=== PATIENT | male | born 1960 | race Two or more races ===

== ENCOUNTER 2024-02-26 17:02 | Inpatient (IN) | payer MEDICARE, MEDICAID, SELFPAY ==
[2024-02-26 17:37] VITALS: BP 121/76; PULSE 100; RESP 16; TEMP 37.4; O2SAT 95; BMI 22.1
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
--- NOTE | 2024-02-26 17:41 | XR_ITS ---
Examination: Foot bilateral, 6 views Technique: AP, oblique, lateral views each foot total 6 views Date and time of exam: February 26, 2024 1827 hrs. Indications: Nonhealing wounds both feet Findings: The films are severely limited secondary to the support material There is a subluxation at the proximal interphalangeal joints left second digit No gross cortical bone destruction Impression: Limited study No gross cortical bone destruction MRI bilateral feet would best assess for osteomyelitis
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
[2024-02-26 18:23] LABS: Lactate (Lactic Acid) 3.3 mMol/L (0.4-2.0)
[2024-02-26 18:30] LABS: Basophils # (Auto) 0.1 Thou/mm3 (0.0-0.2); Basophils % (Auto) 1 % (0-2.5); Eosinophils # (Auto) 0.1 Thou/mm3 (0.0-0.5); Eosinophils % (Auto) 1 % (0-10); Hematocrit 38.3 % (41.0-53.0); Immature Granulocytes % (Auto) 1 % (0-0); Immature Granulocytes Auto 0.05 Thou/mm3 (0.00-0.00); Lymphocytes # (Auto) 2.6 Thou/mm3 (1.0-4.8); Lymphocytes % (Auto) 26 % (10-50); Mean Corpuscular HGB Conc 33.9 g/dl (31.0-37.0); Mean Corpuscular Hemoglobin 28.1 pg (25.0-35.0); Mean Corpuscular Volume 83 fL (80-100); Monocytes # (Auto) 1.2 Thou/mm3 (0.0-0.8); Monocytes % (Auto) 11 % (0-12); Neutrophils # (Auto) 6.1 Thou/mm3 (1.8-7.7); Neutrophils % (Auto) 61 % (37-80); Nucleated Red Blood Cell % 0 /100 WBC (0); Platelet Count 217 Thou/mm3 (140-440); RDW Standard Deviation 52.4 fL (35.1-43.9); Red Blood Count 4.63 Miln/mm3 (4.50-5.90); White Blood Count 10.1 Thou/mm3 (3.8-10.6)
[2024-02-26 18:40] LABS: Glucose Estimated Average 111 mg/dL (80-131); Hemoglobin A1C 5.5 % Hgb (4.8-6.0)
[2024-02-26 18:50] LABS: Alanine Aminotransferase 22 U/L (10-49); Albumin, Serum 2.7 gm/dL (3.4-4.8); Albumin/Globulin Ratio 0.4 (1.2-2.2); Alkaline Phosphatase 175 U/L (46-116); Anion Gap 8 (7-16); Aspartate Amino Transferase 52 U/L (0-34); BUN/Creatinine Ratio 10 Ratio (12-20); Bilirubin,Total 1.2 mg/dL (0.3-1.2); Blood Urea Nitrogen 8 mg/dL (9-23); C-Reactive Protein 3.7 mg/dL (0.0-0.9); Calcium 8.2 mg/dL (8.3-10.6); Calcium (Corrected) 9.2 mg/dL (8.5-10.1); Carbon Dioxide 24.5 mMol/L (20.0-31.0); Chloride 94 mMol/L (98-107); Creatinine (Component) 0.8 mg/dL (0.6-1.3); Estimated Creatinine Clearance 93.3 mL/min (>60); Glucose 152 mg/dL (74-106); Osmolality,Calculated 254 (275-295); Potassium 3.4 mMol/L (3.4-5.1); Procalcitonin 0.17 ng/ml (0.0-0.49); Sodium 126 mMol/L (136-145); Total Protein 9.7 gm/dL (5.7-8.2); eGFR > 60 See Note
[2024-02-26 18:56] LABS: INR 1.4 (0.9-1.3); Partial Thromboplastin Time 40.2 Seconds (22.0-36.0); Prothrombin Time 14.7 Seconds (9.0-12.2)
[2024-02-26 19:10] LABS: Sed Rate (ESR) 130 mm/hr (0-20)
[2024-02-26 19:31] LABS: Amphetamine/Methamp Scrn,U Positive (Negative); Barbiturate Screen,Urine Negative (Negative); Benzodiazepines Screen,Urine Negative (Negative); Benzoylecgonine Screen, Ur Negative (Negative); Fentanyl Screen,Urine Positive (Negative); Opiate Screen,Urine Positive (Negative); THC Screen,Urine Negative (Negative)
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
[2024-02-26 21:19] LABS: Reflex Lactate? Y
[2024-02-26 22:11] VITALS: BP 136/95; PULSE 102; RESP 16; TEMP 36.6; O2SAT 92
--- NOTE | 2024-02-26 22:15 | PC.NURSE ---
Pt to room 5 at this time from room 15; assumed care. Pt's leg dressings removed for MD perez.
--- NOTE | 2024-02-26 22:37 | PC.NURSE ---
Pt has abscesses all over bilateral arms that pt admits are from injecting heroin. Pt states he is on methadone but reports he hasn't had any in the past [address] Jordan informed.
--- NOTE | 2024-02-26 22:44 | PC.NURSE ---
Dr. Jordan at the bedside.
[2024-02-26] MEDS: PIPER/TAZO INJ 3.375 GM in SODIUM CHLORIDE 0.9% (P) 50 ML IV (22:59)
[2024-02-26] MEDS: SODIUM CHLORIDE 0.9% 1000 ML 1,000 ML 999 ML IV (22:59)
[2024-02-26 23:00] VITALS: BP 101/75; PULSE 107; RESP 16; O2SAT 95
[2024-02-26] MEDS: KETOROLAC INJ 30 MG/ML VIAL IVP (23:05)
[2024-02-26] MEDS: LORazepam 2 MG/ML VIAL IVP (23:06)
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
[2024-02-26] MEDS: Vancomycin Inj 2,000 MG in SODIUM CHLORIDE 0.9% 500 ML 500 ML 150 MG IV (23:47)
[2024-02-27] VITALS (7 sets, daily range): BP systolic 103–128; BP diastolic 63–85; PULSE 94–116; RESP 19–22; TEMP 36.4–36.7; O2SAT 95–99; BMI 25.6; BMI 25.7
--- NOTE | 2024-02-27 00:07 | XR_ITS ---
Examination: Urinary bladder sonography TECHNIQUE: Grayscale sonographic images urinary bladder Exam date and time: February 27, 2024 1319 hours INDICATIONS: Thickened urinary bladder wall on CT pelvis April 27, 2023 FINDINGS: Bladder prevoid volume 596 cc Prostate 3.4 x 3.4 x 3.4 cm volume 20.5 cc no prostate nodules Normal urinary bladder wall IMPRESSION: Normal urinary bladder wall
[2024-02-27] MEDS: SODIUM CHLORIDE 0.9% 1000 ML 1,000 ML 999 ML IV (00:10)
--- NOTE | 2024-02-27 00:11 | PC.NURSE ---
Admitting residents at the bedside.
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
--- NOTE | 2024-02-27 04:27 | XR_ITS ---
Examination: MRI left lower leg, without contrast Date and time of exam: February 27, 2024 at 1840 hrs. Indications: Left lower leg redness swelling and pain nonhealing wound medial side of the distal tibia, one month Technique: Multiple axial sagittal and coronal images of the left lower leg have been obtained with the Siemens high-resolution 1.5 Karol MRI scanner. Images obtained include T2-weighted fat-suppressed sagittal sections, TR 3500, TE 46, T2 weighted coronal fat suppressed images, TR 3050, TE 84, T2-weighted transverse fat suppressed images, TR 3260, TE 63, proton density transverse images, TR 4720 TE 46, and T1 weighted coronal images, TR 560, TE 13. Findings: Magnetic susceptibility artifacts upper tibia secondary to orthopedic hardware Cortex of the tibia and fibula are intact No endosteal scalloping No fluid-filled abscess Achilles tendon flexor tendons intact as well as extensor tendons Impression: Negative for osteomyelitis Negative for soft tissue abscess
[2024-02-27 06:20] LABS: Basophils # (Auto) 0.1 Thou/mm3 (0.0-0.2); Basophils % (Auto) 1 % (0-2.5); Eosinophils # (Auto) 0.2 Thou/mm3 (0.0-0.5); Eosinophils % (Auto) 2 % (0-10); Hematocrit 33.5 % (41.0-53.0); Hemoglobin 11.5 g/dL (13.5-16.0); Immature Granulocytes % (Auto) 0 % (0-0); Immature Granulocytes Auto 0.03 Thou/mm3 (0.00-0.00); Lymphocytes # (Auto) 2.7 Thou/mm3 (1.0-4.8); Lymphocytes % (Auto) 31 % (10-50); Mean Corpuscular HGB Conc 34.3 g/dl (31.0-37.0); Mean Corpuscular Hemoglobin 28.3 pg (25.0-35.0); Mean Corpuscular Volume 82 fL (80-100); Monocytes # (Auto) 1.1 Thou/mm3 (0.0-0.8); Monocytes % (Auto) 12 % (0-12); Neutrophils # (Auto) 4.7 Thou/mm3 (1.8-7.7); Neutrophils % (Auto) 54 % (37-80); Nucleated Red Blood Cell % 0 /100 WBC (0); Platelet Count 177 Thou/mm3 (140-440); Red Blood Count 4.07 Miln/mm3 (4.50-5.90); White Blood Count 8.7 Thou/mm3 (3.8-10.6)
[2024-02-27 06:29] LABS: Alanine Aminotransferase 16 U/L (10-49); Albumin, Serum 2.1 gm/dL (3.4-4.8); Albumin/Globulin Ratio 0.4 (1.2-2.2); Alkaline Phosphatase 138 U/L (46-116); Anion Gap 6 (7-16); Aspartate Amino Transferase 38 U/L (0-34); BUN/Creatinine Ratio 15 Ratio (12-20); Bilirubin,Total 1.1 mg/dL (0.3-1.2); Blood Urea Nitrogen 6 mg/dL (9-23); Calcium 7.6 mg/dL (8.3-10.6); Calcium (Corrected) 9.1 mg/dL (8.5-10.1); Carbon Dioxide 25.5 mMol/L (20.0-31.0); Chloride 104 mMol/L (98-107); Creatinine (Component) 0.4 mg/dL (0.6-1.3); Estimated Creatinine Clearance 193.9 mL/min (>60); Globulin 5.4 gm/dL (2.3-3.5); Glucose 106 mg/dL (74-106); Magnesium 1.7 mg/dL (1.6-2.6); Osmolality,Calculated 267 (275-295); Sodium 135 mMol/L (136-145); Thyroid Stimulating Hormone 2.37 uIU/mL (0.55-4.78); Total Protein 7.5 gm/dL (5.7-8.2); eGFR > 60 See Note
[2024-02-27] MEDS: RINGERS LACTATED 1000 ML 1,000 ML 75 ML IV (06:29)
[2024-02-27] MEDS: NICOTINE PATCH 14 MG/24 HR PATCH.TD24 TOP (06:29)
[2024-02-27] MEDS: PIPER/TAZO 3.375 GM 3.375 GM/50 ML BAG IV ×3 (06:30→20:09)
--- NOTE | 2024-02-27 08:23 | ECHO_ITS ---
Transthoracic Echo Report Ht (in): 69 Wt (lb): 173 Exam Location: Portable Status: Inpatient [employer] Machine Operator: Kalli Sue Indications: Procedure Performed: BP: 105 / 74 HR: 98 Rhythm: Sinus Technical Quality: Technically difficult study MEASUREMENTS (Male / Female) Normal Values 2D ECHO LV Diastolic Diameter PLAX 4.7 cm 4.2 - 5.9 / 3.9 - 5.3 cm LV Systolic Diameter PLAX 3.2 cm IVS Diastolic Thickness 0.8 cm 0.6 - 1.0 / 0.6 - 0.9 cm LVPW Diastolic Thickness 1.2 cm 0.6 - 1.0 / 0.6 - 0.9 cm LV Relative Wall Thickness 0.4 LVOT Diameter 1.9 cm LA Volume Index 27.9 cm?/m? 16 - 28 cm?/m? Ascending Aorta Diameter 3.0 cm M-MODE Aortic Root Diameter MM 3.2 cm LA Systolic Diameter MM 3.9 cm LA Ao Ratio MM 1.2 AV Cusp Separation MM 2.3 cm DOPPLER AV Peak Velocity 147.0 cm/s AV Peak Gradient 8.6 mmHg AV Mean Gradient 4.0 mmHg AV Velocity Time Integral 27.3 cm LVOT Peak Velocity 141.0 cm/s LVOT Peak Gradient 8.0 mmHg LVOT Velocity Time Integral 30.8 cm LVOT Cardiac Index 4355.4 cm?/min?m? AV Area Cont Eq vti 3.2 cm? AV Area Cont Eq pk 2.7 cm? MV Peak Velocity 129.0 cm/s MV Peak Gradient 6.7 mmHg MV Mean Velocity 80.7 cm/s MV Mean Gradient 3.0 mmHg MV Area PHT 6.3 cm? Mitral E Point Velocity 78.6 cm/s Mitral A Point Velocity 123.0 cm/s Mitral E to A Ratio 0.6 LV E' Lateral Velocity 9.6 cm/s Mitral E to LV E' Lateral Ratio 8.2 LV E' Septal Velocity 8.4 cm/s Mitral E to LV E' Septal Ratio 9.4 TR Peak Velocity 381.0 cm/s TR Peak Gradient 58.1 mmHg FINDINGS Left Ventricle Normal left ventricular size, wall thickness, systolic function with no obvious regional wall motion abnormalities. The ejection fraction is visually estimated at 60-65%. Right Ventricle The right ventricle is normal in size and systolic function. The estimated right ventricular systoli c pressure, 66 mmHg. RAP 5. Left Atrium The left atrium is normal by two-dimensional, color flow and Doppler imaging with no structural abnormalities, no thrombus formation present. Right Atrium The right atrium is normal by two-dimensional imaging, color flow and Doppler imaging with no struct ural abnormalities, no thrombus formation present. Atrial Septum The interatrial septum appears normal with no evidence of a shunt. Aorta The aorta is normal by two-dimensional, color flow and Doppler interrogation. Mitral Valve The mitral valve is mildly MAC. There is trace mitral valve regurgitation. Aortic Valve The aortic valve is trileaflet and normal by two-dimensional, color flow and Doppler interrogation. There is no significant aortic valve regurgitation. Tricuspid Valve The tricuspid valve is normal by two-dimensional, color flow and Doppler interrogation. There is mil d tricuspid valve regurgitation. Pulmonic Valve There is no significant pulmonic valve regurgitation. Vessels The pulmonary artery appears normal. The inferior vena cava pulmonary and hepatic veins appear matthieu l. Pericardium The pericardium is normal by two-dimensional imaging. There is no significant pericardial effusion. CONCLUSIONS Indication: IVDA Normal LV size and function. Stage I diastolic dysfunction. Estimated EF 60-65% Normal RV size and function. Estimated RVSP 66mmHg. Mild MAC. Trace MR. Mild TR. Miles Doyle (Electronically Signed) Final Date: 28 February 2024 13:23
--- NOTE | 2024-02-27 08:27 | PC.NURSE ---
PATIENT [place] BEEN SLEEPING. NO DISTRESS OBSERVED. AT BEDSIDE.
[2024-02-27] MEDS: VANCOMYCIN/WATER 1250 MG IVPB 250 ML 120 MG IV ×3 (09:01→23:10)
[2024-02-27] MEDS: POTASSIUM CHL 10 mEq IVPB 10 MEQ/100 ML BAG 100 MEQ IV ×4 (09:21→12:23)
[2024-02-27] MEDS: PANTOPRAZOLE 40 MG TABLET PO (09:22)
--- NOTE | 2024-02-27 09:22 | PC.SS ---
Follow up note: Pending ortho consult. On IV antibiotic.
[2024-02-27] MEDS: POTASSIUM CHLORIDE 20 mEq TABCR 40 MEQ PO (09:24)
--- NOTE | 2024-02-27 10:30 | XR_ITS ---
Examination: Arterial duplex lower extremity study. Date and time of exam: February 27, 2024 1235 hours INDICATIONS: Bilateral leg pain beginning 10 days ago Findings: Duplex sonographic imaging of the lower extremity arteries using B-mode/Hurtado scale imaging and Doppler spectral analysis and color flow. Ankle brachial indices have been recorded. Right common femoral artery demonstrates biphasic flow. Right superficial femoral artery demonstrates biphasic flow. Right popliteal artery demonstrates biphasic flow. Right posterior tibial artery demonstrated monophasic flow. Right ankle/brachial index is 1.5. Left common femoral artery demonstrates biphasic flow. Left superficial femoral artery demonstrates biphasic flow. Left popliteal artery demonstrates biphasic flow. Left posterior tibial artery demonstrated monophasic flow. Left ankle/brachial index is 0.84. Impression: Positive for obstructive arterial disease left lower extremity Consider correlation with CTA abdominal aorta iliofemoral runoff post intravenous contrast
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
[2024-02-27 13:22] LABS: Collection Type, Urine Clean Catch
[2024-02-27 13:55] LABS: Bilirubin,Urine Negative (Negative); Blood,Urine Negative (Negative); Clarity,Urine Clear (Clear/Hazy); Color,Urine Yellow (Lt Yel-Yel); Glucose, Urine Negative (Negative); Ketones,Urine Negative (Negative); Leukocyte Esterase,Urine Negative (Negative); Nitrite,Urine Negative (Negative); Protein,Urine Negative (Neg - Trace); RBC,Urine 1 /hpf (0-3); Specific Gravity,Urine 1.014 (1.001-1.035); Squamous Epithelial Cell,Urine < 1 /hpf (0-5); WBC,Urine 5 /hpf (0-5)
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
[2024-02-27 14:41] LABS: HIV (1&2) Antibody Rapid Non-Reactive
--- NOTE | 2024-02-27 15:06 | XR_ITS ---
Examination: Venous duplex lower extremity sonogram, bilateral. Date and time of exam: February 27, 2024 1611 hours INDICATIONS: Bilateral leg pain onset beginning 10 days ago Technique: Multiple sonographic images of the deep venous system have been obtained. B-mode/2-D grayscale imaging of vascular structures and Doppler spectral analysis (waveforms) and color performed Both legs are examined. Findings: Deep venous systems do not demonstrate abnormal echogenicity. All visualized deep veins exhibit compressibility. All visualized deep veins exhibit augmentation. Impression: Negative for deep vein thrombosis
[2024-02-27 15:14] LABS: Hepatitis A Antibody IgM Non Reactive (Non React); Hepatitis B Core Antibody IgM Non Reactive (Non React); Hepatitis B Surface Antigen Non Reactive (Non React); Hepatitis C Antibody Reactive (Non React)
--- NOTE | 2024-02-27 16:09 | PC.DIETICIAN ---
RD to add Flavored Angel Luis 1 pkt BID daily after lunch and dinner, mix with 6-8 oz water for targeted nutrition and wound healing, RN to administer as medication *Recommendation : add Vitamin C 500mg BID daily, zinc 220mg , Multivitamin-Mineral daily to ensure adequate nutrient intake and promote wound healing.
--- NOTE | 2024-02-27 18:11 | XR_ITS ---
Examination: MRI left foot, without contrast Date and time of exam: March 03, 2024 1806 hrs. Indications: Left foot redness swelling and pain dorsal surface of the metatarsals [] Technique: Multiple axial sagittal and coronal images of the left foot have been obtained with the Siemens high-resolution 1.5 Karol MRI scanner. Images obtained include T2-weighted fat-suppressed sagittal sections, TR 3500, TE 46, T2 weighted coronal fat suppressed images, TR 3050, TE 84, T2-weighted transverse fat suppressed images, TR 3260, TE 63, proton density transverse images, TR 4720 TE 46, and T1 weighted coronal images, TR 560, TE 13. Findings: Marked cortical bone destruction involving the proximal and middle phalanges second digit with surrounding soft tissue infection Milder cortical bone destruction involving the ungual tuft tip distal phalanx first digit No drainable soft tissue abscess Magnetic susceptibility artifact in the soft tissue plantar to the calcaneus Diffuse edema surrounds the foot Impression: Osteomyelitis proximal and middle phalanges second digit Osteomyelitis ungual tuft tip first digit
--- NOTE | 2024-02-27 19:36 | PC.NURSE ---
Patient was out for MRI didnt adminster 1800 medication zosyn, notified christina Gonzalez to administer when patient returns
[2024-02-27] MEDS: METHADONE HCL 10 MG TABLET 40 MG PO (20:36)
[2024-02-27 23:03] LABS: Vancomycin,Trough 19.7 mcg/mL (5.0-10.0)
[2024-02-27] MEDS: HEPARIN SOD INJ 5000 UNIT/ML VIAL SC (23:11)
[2024-02-28] VITALS (8 sets, daily range): BP systolic 92–125; BP diastolic 62–85; PULSE 90–103; RESP 17–22; TEMP 36.2–36.9; O2SAT 94–98
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
--- NOTE | 2024-02-28 | XR_ITS ---
Examination: MRI right foot, without contrast Date and time of exam: February 28, 2024 1809 hrs. Indications: Onset plantar surface swelling and pain especially right fifth digit beginning one month ago Technique: Multiple axial sagittal and coronal images of the right foot have been obtained with the Siemens high-resolution 1.5 Karol MRI scanner. Images obtained include T2-weighted fat-suppressed sagittal sections, TR 3500, TE 46, T2 weighted coronal fat suppressed images, TR 3050, TE 84, T2-weighted transverse fat suppressed images, TR 3260, TE 63, proton density transverse images, TR 4720 TE 46, and T1 weighted coronal images, TR 560, TE 13. Findings: Magnetic susceptibility artifact which is plantar to the fifth metatarsophalangeal joint suspicious for foreign body Soft tissue swelling about the distal phalanx fifth digit with cortical bone erosion No soft tissue abscess No pathologic fracture Diffuse edema in the subcutaneous fatty tissue Significant thickening in the plantar fascia Impression: Osteomyelitis distal phalanx fifth digit Foreign body in the soft tissue plantar to the right fifth metatarsophalangeal joint,, recommend CT scan foot without contrast follow-up
[2024-02-28] MEDS: PIPER/TAZO 3.375 GM 3.375 GM/50 ML BAG IV ×5 (00:08→23:48)
[2024-02-28] MEDS: VANCOMYCIN/WATER 1250 MG IVPB 250 ML 120 MG IV (05:52)
[2024-02-28] MEDS: HEPARIN SOD INJ 5000 UNIT/ML VIAL SC ×3 (05:52→21:46)
[2024-02-28 06:17] LABS: Basophils # (Auto) 0.1 Thou/mm3 (0.0-0.2); Basophils % (Auto) 2 % (0-2.5); Eosinophils # (Auto) 0.2 Thou/mm3 (0.0-0.5); Eosinophils % (Auto) 2 % (0-10); Hematocrit 35.1 % (41.0-53.0); Hemoglobin 12.1 g/dL (13.5-16.0); Immature Granulocytes % (Auto) 1 % (0-0); Immature Granulocytes Auto 0.06 Thou/mm3 (0.00-0.00); Lymphocytes # (Auto) 2.8 Thou/mm3 (1.0-4.8); Lymphocytes % (Auto) 32 % (10-50); Mean Corpuscular HGB Conc 34.5 g/dl (31.0-37.0); Mean Corpuscular Hemoglobin 28.2 pg (25.0-35.0); Mean Corpuscular Volume 82 fL (80-100); Monocytes % (Auto) 11 % (0-12); Neutrophils # (Auto) 4.6 Thou/mm3 (1.8-7.7); Neutrophils % (Auto) 53 % (37-80); Nucleated Red Blood Cell % 0 /100 WBC (0); Platelet Count 210 Thou/mm3 (140-440); RDW Standard Deviation 51.5 fL (35.1-43.9); Red Blood Count 4.29 Miln/mm3 (4.50-5.90); White Blood Count 8.8 Thou/mm3 (3.8-10.6)
[2024-02-28 06:39] LABS: Alanine Aminotransferase 15 U/L (10-49); Albumin, Serum 2.2 gm/dL (3.4-4.8); Albumin/Globulin Ratio 0.4 (1.2-2.2); Alkaline Phosphatase 135 U/L (46-116); Anion Gap 6 (7-16); Aspartate Amino Transferase 35 U/L (0-34); BUN/Creatinine Ratio 10 Ratio (12-20); Bilirubin,Total 1.1 mg/dL (0.3-1.2); Blood Urea Nitrogen < 5 mg/dL (9-23); Calcium 7.9 mg/dL (8.3-10.6); Calcium (Corrected) 9.3 mg/dL (8.5-10.1); Carbon Dioxide 24.1 mMol/L (20.0-31.0); Chloride 102 mMol/L (98-107); Creatinine (Component) 0.5 mg/dL (0.6-1.3); Estimated Creatinine Clearance 150.1 mL/min (>60); Globulin 5.5 gm/dL (2.3-3.5); Glucose 86 mg/dL (74-106); Osmolality,Calculated 260 (275-295); Potassium 3.9 mMol/L (3.4-5.1); Sodium 132 mMol/L (136-145); Total Protein 7.7 gm/dL (5.7-8.2); eGFR > 60 See Note
[2024-02-28] MEDS: PANTOPRAZOLE 40 MG TABLET PO (08:26)
[2024-02-28] MEDS: METHADONE HCL 10 MG TABLET 40 MG PO (08:26)
[2024-02-28] MEDS: traMADol HCL 50 MG TABLET PO (12:09)
--- NOTE | 2024-02-28 12:15 | PC.WOUND ---
Assisted Dr. Ortega with bedside I&D after consent obtained and pre-medicated. Pt tolerated procedure well, no active bleeding. Adaptic dressing reapplied. orders to follow at [facility] as outpatient. Arias continue to follow.
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
--- NOTE | 2024-02-28 13:10 | PD.SURPROC ---
Procedures - Surgery Procedure Comment Procedure Comment: Excisional debridement of left foot wound Informed consent obtained Pt received tramadol 50mg immediately prior to procedure Timeout performed Ulceration of the left foot proximal to the second and third toes sharply debrided with a curette to the level of subcutaneous tissue Wound irrigated with betadine and saline Minimal bleeding controlled with direct pressure Wound dressed with adaptic, fluffs and kerlix
[2024-02-28] MEDS: VANCOMYCIN/NS 1 GM IVPB 200 ML IV ×2 (15:12→21:46)
--- NOTE | 2024-02-28 20:12 | PC.NURSE ---
CT staff called for CT scan went to pts room and explained to him but he refused it, per pt he is tired and just want to go sleep, MD Rivera made aware and he said to tell pt that its just for 10 mins went back to pts room and explained it to him but he insisted not to go JUSTIN cristina at bedside at that time. MD Talamantes made aware she said its okay to do it tomorrow.
[2024-02-29] VITALS (9 sets, daily range): BP systolic 97–139; BP diastolic 58–92; PULSE 78–95; RESP 16–17; TEMP 36.4–37.3; O2SAT 93–95
[2024-02-29] MEDS: HEPARIN SOD INJ 5000 UNIT/ML VIAL SC ×3 (05:05→22:05)
[2024-02-29] MEDS: PIPER/TAZO 3.375 GM 3.375 GM/50 ML BAG IV ×3 (05:05→18:48)
[2024-02-29] MEDS: VANCOMYCIN/NS 1 GM IVPB 200 ML IV ×2 (05:40→14:07)
[2024-02-29 06:04] LABS: Basophils # (Auto) 0.1 Thou/mm3 (0.0-0.2); Basophils % (Auto) 1 % (0-2.5); Eosinophils # (Auto) 0.1 Thou/mm3 (0.0-0.5); Eosinophils % (Auto) 2 % (0-10); Hemoglobin 12.1 g/dL (13.5-16.0); Immature Granulocytes % (Auto) 1 % (0-0); Immature Granulocytes Auto 0.04 Thou/mm3 (0.00-0.00); Lymphocytes # (Auto) 2.7 Thou/mm3 (1.0-4.8); Lymphocytes % (Auto) 32 % (10-50); Mean Corpuscular HGB Conc 34.6 g/dl (31.0-37.0); Mean Corpuscular Hemoglobin 28.4 pg (25.0-35.0); Mean Corpuscular Volume 82 fL (80-100); Monocytes # (Auto) 0.7 Thou/mm3 (0.0-0.8); Monocytes % (Auto) 9 % (0-12); Neutrophils # (Auto) 4.6 Thou/mm3 (1.8-7.7); Neutrophils % (Auto) 56 % (37-80); Nucleated Red Blood Cell % 0 /100 WBC (0); Platelet Count 180 Thou/mm3 (140-440); RDW Standard Deviation 51.2 fL (35.1-43.9); Red Blood Count 4.26 Miln/mm3 (4.50-5.90); White Blood Count 8.2 Thou/mm3 (3.8-10.6)
[2024-02-29 06:55] LABS: Alanine Aminotransferase 15 U/L (10-49); Albumin, Serum 2.3 gm/dL (3.4-4.8); Albumin/Globulin Ratio 0.4 (1.2-2.2); Alkaline Phosphatase 137 U/L (46-116); Anion Gap 8 (7-16); Aspartate Amino Transferase 34 U/L (0-34); BUN/Creatinine Ratio 10 Ratio (12-20); Bilirubin,Total 0.9 mg/dL (0.3-1.2); Blood Urea Nitrogen 5 mg/dL (9-23); Calcium 7.5 mg/dL (8.3-10.6); Calcium (Corrected) 8.9 mg/dL (8.5-10.1); Carbon Dioxide 23.4 mMol/L (20.0-31.0); Chloride 100 mMol/L (98-107); Creatinine (Component) 0.5 mg/dL (0.6-1.3); Estimated Creatinine Clearance 150.1 mL/min (>60); Globulin 5.5 gm/dL (2.3-3.5); Glucose 97 mg/dL (74-106); Osmolality,Calculated 259 (275-295); Potassium 3.5 mMol/L (3.4-5.1); Sodium 131 mMol/L (136-145); Total Protein 7.8 gm/dL (5.7-8.2); eGFR > 60 See Note
[2024-02-29] MEDS: METHADONE HCL 10 MG TABLET 40 MG PO (08:52)
[2024-02-29] MEDS: PANTOPRAZOLE 40 MG TABLET PO (08:52)
--- NOTE | 2024-02-29 09:14 | PC.SS ---
Follow up note: Pt is on IV antibiotic. Pending Dr. Thomas's recommendations.
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
[2024-02-29] MEDS: traMADol HCL 50 MG TABLET PO (12:03)
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
[2024-02-29 21:45] LABS: Vancomycin,Trough 21.7 mcg/mL (5.0-10.0)
[2024-03-01] VITALS (9 sets, daily range): BP systolic 95–114; BP diastolic 64–78; PULSE 80–91; RESP 14–18; TEMP 36.2–37.1; O2SAT 92–99
[2024-03-01] MEDS: PIPER/TAZO 3.375 GM 3.375 GM/50 ML BAG IV ×5 (00:02→23:45)
[2024-03-01] MEDS: HEPARIN SOD INJ 5000 UNIT/ML VIAL SC ×3 (05:22→21:20)
[2024-03-01] MEDS: Milk Of Magnesia Susp 30 ML UDC PO (05:34)
[2024-03-01] MEDS: traMADol HCL 50 MG TABLET PO (05:35)
[2024-03-01 05:48] LABS: Basophils # (Auto) 0.1 Thou/mm3 (0.0-0.2); Basophils % (Auto) 1 % (0-2.5); Eosinophils # (Auto) 0.2 Thou/mm3 (0.0-0.5); Eosinophils % (Auto) 2 % (0-10); Hematocrit 37.3 % (41.0-53.0); Hemoglobin 12.6 g/dL (13.5-16.0); Immature Granulocytes % (Auto) 0 % (0-0); Immature Granulocytes Auto 0.03 Thou/mm3 (0.00-0.00); Lymphocytes # (Auto) 2.9 Thou/mm3 (1.0-4.8); Lymphocytes % (Auto) 36 % (10-50); Mean Corpuscular HGB Conc 33.8 g/dl (31.0-37.0); Mean Corpuscular Hemoglobin 27.9 pg (25.0-35.0); Mean Corpuscular Volume 83 fL (80-100); Monocytes # (Auto) 0.9 Thou/mm3 (0.0-0.8); Monocytes % (Auto) 11 % (0-12); Neutrophils # (Auto) 3.9 Thou/mm3 (1.8-7.7); Neutrophils % (Auto) 49 % (37-80); Nucleated Red Blood Cell % 0 /100 WBC (0); Platelet Count 171 Thou/mm3 (140-440); RDW Standard Deviation 51.7 fL (35.1-43.9); Red Blood Count 4.52 Miln/mm3 (4.50-5.90); White Blood Count 7.9 Thou/mm3 (3.8-10.6)
[2024-03-01 05:53] LABS: Misc Send Out* See Sep Rpt
[2024-03-01 06:31] LABS: Alanine Aminotransferase 16 U/L (10-49); Albumin, Serum 2.3 gm/dL (3.4-4.8); Albumin/Globulin Ratio 0.4 (1.2-2.2); Alkaline Phosphatase 143 U/L (46-116); Anion Gap 7 (7-16); Aspartate Amino Transferase 40 U/L (0-34); BUN/Creatinine Ratio 10 Ratio (12-20); Bilirubin,Total 0.9 mg/dL (0.3-1.2); Blood Urea Nitrogen < 5 mg/dL (9-23); Calcium (Corrected) 9.4 mg/dL (8.5-10.1); Chloride 101 mMol/L (98-107); Creatinine (Component) 0.5 mg/dL (0.6-1.3); Estimated Creatinine Clearance 150.1 mL/min (>60); Globulin 5.8 gm/dL (2.3-3.5); Glucose 93 mg/dL (74-106); Osmolality,Calculated 261 (275-295); Potassium 3.6 mMol/L (3.4-5.1); Sodium 132 mMol/L (136-145); Total Protein 8.1 gm/dL (5.7-8.2); eGFR > 60 See Note
[2024-03-01] MEDS: PANTOPRAZOLE 40 MG TABLET PO (09:47)
[2024-03-01] MEDS: METHADONE HCL 10 MG TABLET 40 MG PO (09:47)
[2024-03-01] MEDS: DOCUSATE SOD 100 MG CAPSULE PO (10:32)
[2024-03-01] MEDS: SENNA TABLET 1 TAB PO (10:32)
[2024-03-01] MEDS: VANCOMYCIN/WATER 1250 MG IVPB 250 ML 120 MG IV ×2 (10:33→21:32)
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
[2024-03-01] MEDS: ASPIRIN EC 81 MG TABEC PO (15:24)
[2024-03-01] MEDS: BusPIRone HCL 5 MG TABLET PO (15:24)
[2024-03-01] MEDS: CLOPIDOGREL BISULFATE 75 MG TABLET PO (15:24)
[2024-03-01] MEDS: ATORVASTATIN CALCIUM 20 MG TABLET 80 MG PO (21:18)
[2024-03-02] VITALS (8 sets, daily range): BP systolic 90–105; BP diastolic 59–66; PULSE 69–87; RESP 15–24; TEMP 36.4–36.9; O2SAT 92–96
[2024-03-02] MEDS: PIPER/TAZO 3.375 GM 3.375 GM/50 ML BAG IV ×3 (05:10→17:44)
[2024-03-02] MEDS: HEPARIN SOD INJ 5000 UNIT/ML VIAL SC ×3 (05:15→21:29)
[2024-03-02 06:21] LABS: Basophils # (Auto) 0.1 Thou/mm3 (0.0-0.2); Basophils % (Auto) 2 % (0-2.5); Eosinophils # (Auto) 0.2 Thou/mm3 (0.0-0.5); Eosinophils % (Auto) 2 % (0-10); Hematocrit 35.1 % (41.0-53.0); Hemoglobin 11.7 g/dL (13.5-16.0); Immature Granulocytes % (Auto) 1 % (0-0); Immature Granulocytes Auto 0.04 Thou/mm3 (0.00-0.00); Lymphocytes # (Auto) 3.5 Thou/mm3 (1.0-4.8); Lymphocytes % (Auto) 40 % (10-50); Mean Corpuscular HGB Conc 33.3 g/dl (31.0-37.0); Mean Corpuscular Volume 84 fL (80-100); Monocytes # (Auto) 0.8 Thou/mm3 (0.0-0.8); Monocytes % (Auto) 9 % (0-12); Neutrophils % (Auto) 46 % (37-80); Nucleated Red Blood Cell % 0 /100 WBC (0); Platelet Count 184 Thou/mm3 (140-440); Red Blood Count 4.18 Miln/mm3 (4.50-5.90); White Blood Count 8.7 Thou/mm3 (3.8-10.6)
[2024-03-02 06:47] LABS: Alanine Aminotransferase 17 U/L (10-49); Albumin, Serum 2.3 gm/dL (3.4-4.8); Albumin/Globulin Ratio 0.4 (1.2-2.2); Alkaline Phosphatase 143 U/L (46-116); Anion Gap 5 (7-16); Aspartate Amino Transferase 42 U/L (0-34); BUN/Creatinine Ratio 12 Ratio (12-20); Bilirubin,Total 0.9 mg/dL (0.3-1.2); Blood Urea Nitrogen 7 mg/dL (9-23); Calcium (Corrected) 9.4 mg/dL (8.5-10.1); Carbon Dioxide 26.6 mMol/L (20.0-31.0); Chloride 101 mMol/L (98-107); Creatinine (Component) 0.6 mg/dL (0.6-1.3); Estimated Creatinine Clearance 125.1 mL/min (>60); Globulin 5.7 gm/dL (2.3-3.5); Glucose 89 mg/dL (74-106); Osmolality,Calculated 263 (275-295); Potassium 3.7 mMol/L (3.4-5.1); Sodium 133 mMol/L (136-145); eGFR > 60 See Note
[2024-03-02] MEDS: DOCUSATE SOD 100 MG CAPSULE PO (09:04)
[2024-03-02] MEDS: CLOPIDOGREL BISULFATE 75 MG TABLET PO (09:04)
[2024-03-02] MEDS: PANTOPRAZOLE 40 MG TABLET PO (09:04)
[2024-03-02] MEDS: METHADONE HCL 10 MG TABLET 40 MG PO (09:04)
[2024-03-02] MEDS: SENNA TABLET 1 TAB PO (09:04)
[2024-03-02] MEDS: BusPIRone HCL 5 MG TABLET PO ×2 (09:04→21:29)
[2024-03-02] MEDS: ASPIRIN EC 81 MG TABEC PO (09:04)
[2024-03-02 11:17] LABS: Vancomycin,Trough 13.9 mcg/mL (5.0-10.0)
[2024-03-02] MEDS: VANCOMYCIN/WATER 1250 MG IVPB 250 ML 120 MG IV ×2 (11:43→21:33)
--- NOTE | 2024-03-02 15:02 | PC.SS ---
Rounding: Dr. Thomas to see 03/03
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
[2024-03-02] MEDS: ATORVASTATIN CALCIUM 20 MG TABLET 80 MG PO (21:30)
[2024-03-03] VITALS: BP 97/62; PULSE 82; PULSE 84; RESP 20; TEMP 36.8; O2SAT 92
[2024-03-03] MEDS: PIPER/TAZO 3.375 GM 3.375 GM/50 ML BAG IV ×3 (00:25→14:21)
[2024-03-03 03:21] LABS: Hepatitis B Surface Ab NonReact(Not Immune) (Immune)
[2024-03-03 04:00] VITALS: BP 97/60; PULSE 75; PULSE 84; RESP 20; TEMP 36.6; O2SAT 94
[2024-03-03] MEDS: HEPARIN SOD INJ 5000 UNIT/ML VIAL SC (05:47)
[2024-03-03] MEDS: traMADol HCL 50 MG TABLET PO (06:07)
[2024-03-03 06:41] LABS: Basophils # (Auto) 0.1 Thou/mm3 (0.0-0.2); Basophils % (Auto) 1 % (0-2.5); Eosinophils # (Auto) 0.2 Thou/mm3 (0.0-0.5); Eosinophils % (Auto) 3 % (0-10); Hematocrit 38.9 % (41.0-53.0); Hemoglobin 12.4 g/dL (13.5-16.0); Immature Granulocytes % (Auto) 0 % (0-0); Immature Granulocytes Auto 0.03 Thou/mm3 (0.00-0.00); Lymphocytes # (Auto) 3.6 Thou/mm3 (1.0-4.8); Lymphocytes % (Auto) 41 % (10-50); Mean Corpuscular HGB Conc 31.9 g/dl (31.0-37.0); Mean Corpuscular Hemoglobin 27.6 pg (25.0-35.0); Mean Corpuscular Volume 87 fL (80-100); Monocytes # (Auto) 0.8 Thou/mm3 (0.0-0.8); Monocytes % (Auto) 9 % (0-12); Neutrophils # (Auto) 4.1 Thou/mm3 (1.8-7.7); Neutrophils % (Auto) 46 % (37-80); Nucleated Red Blood Cell % 0 /100 WBC (0); Platelet Count 189 Thou/mm3 (140-440); Red Blood Count 4.49 Miln/mm3 (4.50-5.90); White Blood Count 8.8 Thou/mm3 (3.8-10.6)
[2024-03-03 07:14] LABS: Alanine Aminotransferase 17 U/L (10-49); Albumin, Serum 2.3 gm/dL (3.4-4.8); Albumin/Globulin Ratio 0.4 (1.2-2.2); Alkaline Phosphatase 153 U/L (46-116); Anion Gap 7 (7-16); Aspartate Amino Transferase 45 U/L (0-34); BUN/Creatinine Ratio 17 Ratio (12-20); Bilirubin,Total 0.7 mg/dL (0.3-1.2); Blood Urea Nitrogen 10 mg/dL (9-23); C-Reactive Protein 1.9 mg/dL (0.0-0.9); Calcium (Corrected) 9.4 mg/dL (8.5-10.1); Carbon Dioxide 22.5 mMol/L (20.0-31.0); Chloride 102 mMol/L (98-107); Creatinine (Component) 0.6 mg/dL (0.6-1.3); Estimated Creatinine Clearance 125.1 mL/min (>60); Glucose 78 mg/dL (74-106); Osmolality,Calculated 260 (275-295); Potassium 4.2 mMol/L (3.4-5.1); Sodium 131 mMol/L (136-145); Total Protein 8.3 gm/dL (5.7-8.2); eGFR > 60 See Note
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
[2024-03-03 08:00] VITALS: BP 103/70; PULSE 95; RESP 19; TEMP 36.2; O2SAT 92
[2024-03-03 08:22] VITALS: PULSE 77; RESP 19; O2SAT 95
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
[2024-03-03 10:12] LABS: Sed Rate (ESR) 58 mm/hr (0-20)
--- NOTE | 2024-03-03 10:58 | ESDS_ITS ---
<Statement entered by Buffy Santos DO - 03/04/24 15:18> I, Buffy Santos DO, attest that I was physically present for the ng portions of the service and evaluated the patient with the resident and I reviewed and discussed the case with the resident and agree with the resident's findings and plans of care as documented above Planned Discharge Date 03/03/24 DS: Providers Provider Date of admission: 02/27/24 00:35 Primary care physician: Harry Preciado Admitting Provider: Bert Arias DO Attending Provider on Admission: Buffy Santos DO Consults: 02/26/24 23:46 Consult to Orthopedic Stat Comment: Consulting Provider: Rasheed Terrell 02/27/24 03:40 Health Equity Referral - Knowledge Deficit Routine Comment: Positive screening for knowledge deficit needs. Health Equity Referral - Nutrition Routine Comment: Positive screening for nutrition needs. Health Equity Referral - Transportation Routine Comment: Positive screening for transportation needs. Health Equity Referral - Utilities Routine Comment: Positive screening for utility assistance needs. 02/27/24 05:33 Referral Smoking Cessation Counseling Routine Comment: Smoking Cessation Education Needed 02/27/24 05:34 Referral Wound Care Routine Comment: 02/27/24 11:50 Consult to General Surgery Stat Comment: Consulting Provider: Sydnee Ortega 02/27/24 13:19 Referral Nutritional Services Routine Comment: Instructions: LLE venous ulcers 02/28/24 11:51 Consult to Infectious Diseases Stat Comment: Consulting Provider: Alejo Thomas 03/01/24 14:48 Referral Physical Therapy Routine Comment: Physician Instructions: Attending Provider on DC: Buffy Santos DO Discharging Provider: Chaz Manuel MD Anticipated date of discharge: 03/03/24 DS: Diagnosis Problem List Completed Was Problem List Reviewed/Reconciled?: Yes Hospital Course Hospital Course Hospital course: 63-year-old male with significant past medical history of alcohol/tobacco abuse, on chronic methadone, heroin abuse with recurrent relapses, hypertension, peripheral vascular disease with chronic ulcers on bilateral lower extremity, COPD on 6 L oxygen at home, history of rib fractures, CVA, history of intubation for drug intoxication in 2022 presented to the hospital with complaints of worsening lower extremity swelling and continuous drug abuse and admitted for bilateral lower extremity cellulitis to rule out osteomyelitis, polysubstance abuse. During hospital stay patient had MRI found with cortical bone destruction of the right foot on the right fifth digit involving proximal and middle phalanges mid second digit with surrounding soft tissue infection. Was started on IV antibiotics vancomycin and Zosyn. Infectious disease specialist was consulted and provided with antibiotic recommendation for the time of discharge, wound care was also provided. Patient was also counseled we will most likely need amputation at a later point in time however at this time we will continue with antibiotic therapy. Patient had a history of a pelvic fracture a few weeks ago for which orthopedic surgeon Dr. Montalvo was consulted stated patient does not need surgical intervention at this time. As far as his polysubstance abuse patient was provided with nicotine patch, was put on CIWA protocol, patient's home methadone was resumed. Patient has history of COPD for which nebulization therapies were ordered as needed. Patient has history of CAD and CVA aspirin, Plavix, statin were resumed as taken at home. Patient has history of hypertension however during hospital stay patient was normotensive or on the softer side for which antihypertensive were held with held can follow-up with primary care physician and resume them. At this time patient is medically stable for discharge. Recommended to follow up with Primary doctor within 1 week of discharge. Recommended to follow up with wound care clinic with regards to wounds in Upper extremities, as well as lower extremities. Recommended to continue augmentin and doxycycline for 2 months of therapy. If any symptoms recur or worsen patient is instructed to return to the ED. Problem list: # Bilateral acute on chronic lower extremity cellulitis #R/o osteomyelitis #History of chronic venous stasis, peripheral vascular disease #Injection site abscess in bilateral upper extremities # Pelvic fracture # Acute rib fractures # Polysubstance abuse # Multiple nodular abscesses noted in bilateral extremities secondary to IV drug abuse, injection site abscess # Mild coagulopathy # Hypoalbuminemia # Incidental imaging findings # Thickening of right lateral bladder wall # History of COPD # History of CVA # History of hypertension Case discussed with my attending Dr. Danielle Manuel MD PGY-1 Status at Discharge Functional status at discharge: uses cane/walker Overall status at discharge: patient is back to baseline Time Spent with Patient Time attestation: Total time spent providing and/or coordinating discharge services: Time spent: Greater than 30 minutes Exam Vital Signs Temp Pulse Resp BP Pulse Ox O2 Del Method O2 Flow Rate 97.1 F 77 19 103/70 95 Nasal Cannula 3 03/03/24 08:00 03/03/24 08:22 03/03/24 08:22 03/03/24 08:00 03/03/24 08:22 03/03/24 04:00 03/03/24 08:22 Narrative Exam Physical Exam GENERAL: NAD, AAOx3, disheveled, frail, looks older than stated age HEENT: Moist mucosa. Eyes open, symmetrical, & clear CARDIO: Heart RRR, murmur RLSB PULM: No noted coughing/dyspnea CTA B/L, no R/W/R GI: Abdomen soft, nondistended, no pain on palpation. BSx4 SKIN/MSK/EXT: Bilateral lower extremity erythema, crusting, left lower extremity, covered, bilateral upper extremities with track burks and abscesses, Pedal pulses present B/L minimal NEURO: AAOx3, no focal neuro deficits, able to move all 4 extremities Discharge Plan Plan Patient Disposition: Home w/HOME HEALTH Patient condition on transfer: Stable Care Plan Goals: Recommended to follow up with Primary doctor within 1 week of discharge Recommended to follow up with wound care clinic with regards to wounds in Upper extremities, as well as lower extremities Recommended to continue augmentin and doxycycline for 2 months of therapy. If any symptoms recur or worsen patient is instructed to return to the ED. Prescriptions/Referrals Prescriptions/Med Rec: New magnesium hydroxide [Milk of Magnesia] 400 mg/5 mL Suspension 30 ml PO QDAY PRN (Reason: Constipation) Qty: 355 0RF doxycycline hyclate 100 mg capsule 100 mg PO BID 56 Days Qty: 112 0RF amoxicillin-pot clavulanate 875-125 mg tablet 1 tab PO BID 56 Days Qty: 112 0RF Continued fluticasone propion-salmeterol 250-50 mcg/dose blister with device 1 inh INHALATION QDAY clopidogrel 75 mg tablet 75 mg PO DAILY Rx Instructions: pt hasn''t been taking for more than a week. aspirin 81 mg tablet,delayed release (DR/EC) 81 mg PO DAILY Patient Comments: TAKE 1 TABLET BY MOUTH EVERY DAY Rx Instructions: pt hasn't been taking meds for more than a week per . buspirone 5 mg tablet 5 mg PO BID Patient Comments: TAKE 1 TABLET BY MOUTH TWICE A DAY FOR 90 DAYS buspirone 5 mg tablet 5 mg PO BID Patient Comments: TAKE 1 TABLET BY MOUTH TWICE A DAY FOR 90 DAYS thiamine HCl (vitamin B1) 100 mg tablet 100 mg PO QDAY Patient Comments: TAKE 1 TABLET BY MOUTH EVERY DAY pantoprazole 40 mg tablet,delayed release (DR/EC) 40 mg PO QDAY Patient Comments: TAKE 1 TABLET BY MOUTH EVERY DAY acamprosate 333 mg tablet,delayed release (DR/EC) 333 mg PO QDAY Patient Comments: PLEASE SEE ATTACHED FOR DETAILED DIRECTIONS methadone 10 mg/5 mL Solution 40 mg PO QDAY Hold Instructions: Resume on 12/19/22. Rx Instructions: CONFIRMED WITH [facility] 07/31/22 atorvastatin 80 mg tablet 80 mg PO HS Patient Comments: TAKE 1 TABLET BY MOUTH EVERY DAY AT BEDTIME furosemide 20 mg tablet 20 mg PO QDAY Patient Comments: TAKE 1 TABLET BY MOUTH EVERY DAY FOR EDEMA loratadine 10 mg tablet 10 mg PO QDAY Patient Comments: TAKE 1 TABLET BY MOUTH EVERY DAY FOR ALLERGIES Discontinued ibuprofen 800 mg Tablet 800 mg PO Q8H PRN (Reason: Pain, Moderate) spironolactone 50 mg tablet 50 mg PO QDAY Patient Comments: TAKE 1 TABLET BY MOUTH EVERY DAY Referrals: Harry Preciado [Primary Care Provider] - Patient/Caregiver Discharge Instructions Other Discharge Activity Instructions:: Follow up at [facility], [address] [place] [address]. Call [phone] to schedule appointment. Abscesses to bilateral upper arms: apply warm compressess three times a day. Monitor for open wounds. If sites open keep clean and covered with bandides daily until seen by Wound Center. Left inner lower leg and left top of foot: cleanse well with wound cleanser spray, pat dry, apply adaptic gauze and secure with gauze roll once a day. Education Materials: Nutrition for Wound Healing, Changing Dressing Dc, Wound Care Dc, Preventing Surgical Site Infections Print Language: Libyan Stand Alone Forms: [employer] Award Info., Patient Portal Info Letter Discharge Order Discharge Orders: Discharge (Routine); Ordered 03/03/24 Ordered By: Chaz Manuel Quality Discharge Quality Measures VTE prophylaxis
[2024-03-03] MEDS: METHADONE HCL 10 MG TABLET 40 MG PO (11:32)
[2024-03-03] MEDS: CLOPIDOGREL BISULFATE 75 MG TABLET PO (11:32)
[2024-03-03] MEDS: PANTOPRAZOLE 40 MG TABLET PO (11:33)
[2024-03-03] MEDS: BusPIRone HCL 5 MG TABLET PO (11:33)
[2024-03-03] MEDS: SENNA TABLET 1 TAB PO (11:33)
[2024-03-03] MEDS: VANCOMYCIN/WATER 1250 MG IVPB 250 ML 120 MG IV (11:33)
[2024-03-03] MEDS: DOCUSATE SOD 100 MG CAPSULE PO (11:33)
[2024-03-03] MEDS: ASPIRIN EC 81 MG TABEC PO (11:33)
--- NOTE | 2024-03-03 11:45 | PC.NURSE ---
pt is to discharge after antibiotic treatment, per Dr. Pat
[2024-03-03 12:00] VITALS: BP 103/61; PULSE 77; PULSE 88; RESP 18; TEMP 36.6; O2SAT 96
--- NOTE | 2024-03-03 12:15 | PC.SS ---
Addendum entered by Edel Palencia 03/03/24 12:16: Pt is on IV antibiotic. Possibly will require terminal operator IV antibiotic. Original Note: Follow up note: SS received call from Endy from PT and his recommending Home Health Services for PT.
[2024-03-03 12:44] LABS: INR 1.3 (0.9-1.3); Partial Thromboplastin Time 53.7 Seconds (22.0-36.0); Prothrombin Time 13.6 Seconds (9.0-12.2)
--- NOTE | 2024-03-03 13:31 | PC.PT ---
Patient is safe to ambulate to the bathroom using a FWW, O2, and 1 staff assist. RN notified.
--- NOTE | 2024-03-03 14:56 | PC.SS ---
SS and bedside nurse, Jimi met with pt and who state pt can setup his transportation. is aware to bring small O2 tank to bedside for transport.
--- NOTE | 2024-03-03 15:02 | PC.SS ---
SS met with pt and who state they do not have preference for Home Health. Pt last followed up with PCP, Dr. Preciado in February 2024.
--- NOTE | 2024-03-03 15:58 | PC.SS ---
SS was informed by bedside nurseJimi pt was attempting to setup transportation but he does not have a credit card. SS attempted to setup transport with [employer] but was unsuccessful (pt not found in their system). SS contacted [employer] but transportation is not available until 5am tomorrow. SS setup transport for pt with [facility] for 4pm. [facility] does not accept kathleen only credit cared. Pt is aware. Bedside nurseJimi is aware and has [employer] [employer] phone#.
[2024-03-03 16:00] VITALS: BP 117/68; PULSE 102; PULSE 98; RESP 18; TEMP 36.3; O2SAT 95
--- NOTE | 2024-03-03 17:30 | PC.NURSE ---
pt belongings left behind by medical transport, attempted to call pt and no answer, belongings placed at front desk coordinator with bookkeeper receptionist
--- NOTE | 2024-03-04 11:19 | PC.CM ---
REFERRAL SENT TO [facility], PER NOTES PT DOES NOT HAVE ANY PREFERENCE
--- NOTE | 2024-03-05 14:00 | PC.CC ---
Patient accepted by [facility], start of care 03/07/24
== END 2024-03-03 17:05 | disposition home health service (06) | DRG 571 ==
LOC: SERX 23:22 → SERHOLD 02-27 01:23 → S3SX 02-27 02:32
PROVIDERS: Internal Medicine Infectious Disease; Nurse Practitioner Primary Care; Radiology Diagnostic Radiology; Student in an Organized Health Care Education/Training Program; Admitting Provider Student in an Organized Health Care Education/Training Program; Emergency Provider Emergency Medicine; PCP Internal Medicine; Visit Provider Internal Medicine
DX: L03.115 Cellulitis of right lower limb (principal); D68.9 Coagulation defect, unspecified; L02.413 Cutaneous abscess of right upper limb; S32.592A Other specified fracture of left pubis, initial encounter for closed fracture; L02.414 Cutaneous abscess of left upper limb; L03.113 Cellulitis of right upper limb; L03.114 Cellulitis of left upper limb; S22.39XA Fracture of one rib, unspecified side, initial encounter for closed fracture; L03.116 Cellulitis of left lower limb; J44.9 Chronic obstructive pulmonary disease, unspecified; Z86.73 Personal history of transient ischemic attack (TIA), and cerebral infarction without residual deficits; M79.89 Other specified soft tissue disorders; I73.9 Peripheral vascular disease, unspecified; I87.2 Venous insufficiency (chronic) (peripheral); I11.0 Hypertensive heart disease with heart failure; I50.9 Heart failure, unspecified; F19.129 Other psychoactive substance abuse with intoxication, unspecified; E88.09 Other disorders of plasma-protein metabolism, not elsewhere classified; Z99.81 Dependence on supplemental oxygen; X58.XXXA Exposure to other specified factors, initial encounter; Z71.6 Tobacco abuse counseling; V49.9XXA Car occupant (driver) (passenger) injured in unspecified traffic accident, initial encounter
CPT/HCPCS: 36415; 71250; 73630; 73718; 74176; 76857; 80053; 80074; 80202; 80307; 81001; 83036; 83605; 83735; 84100; 84145; 84443; 85025; 85610; 85652; 85730; 86140; 86703; 86706; 87040; 87070; 87081; 87205; 93225; 93306; 93925; 93970; 96361; 96365; 96375; 97162; 99291; J1643; J1885; J2060; J2543; J3370; J3371; J3372; J3480; J7030; J7040; J7050; J7120; A9270

== ENCOUNTER → 2024-03-05 | Outpatient (CLI) | payer MEDICARE, MEDICAID, SELFPAY | END | disposition home or self-care (01) | LOC: SWHD 12:49 | PROVIDERS: PCP Nurse Practitioner Family; Referring Provider Nurse Practitioner Family; Visit Provider Student in an Organized Health Care Education/Training Program | DX: L97.529 Non-pressure chronic ulcer of other part of left foot with unspecified severity (principal); S90.821A Blister (nonthermal), right foot, initial encounter; X58.XXXA Exposure to other specified factors, initial encounter; J44.9 Chronic obstructive pulmonary disease, unspecified; I63.9 Cerebral infarction, unspecified; I10 Essential (primary) hypertension; I73.89 Other specified peripheral vascular diseases; F15.90 Other stimulant use, unspecified, uncomplicated; F41.8 Other specified anxiety disorders; B19.20 Unspecified viral hepatitis C without hepatic coma | CPT/HCPCS: 29580; 99213; A9270; G0463 ==

== ENCOUNTER → 2024-03-17 | Outpatient (CLI) | payer MEDICARE, MEDICAID, SELFPAY | END | disposition home or self-care (01) | PROVIDERS: PCP Internal Medicine; Referring Provider Internal Medicine; Visit Provider Student in an Organized Health Care Education/Training Program | DX: I87.313 Chronic venous hypertension (idiopathic) with ulcer of bilateral lower extremity (principal); S90.821A Blister (nonthermal), right foot, initial encounter; X58.XXXA Exposure to other specified factors, initial encounter; L97.821 Non-pressure chronic ulcer of other part of left lower leg limited to breakdown of skin; L97.822 Non-pressure chronic ulcer of other part of left lower leg with fat layer exposed; L97.818 Non-pressure chronic ulcer of other part of right lower leg with other specified severity; J44.9 Chronic obstructive pulmonary disease, unspecified; I63.9 Cerebral infarction, unspecified; I10 Essential (primary) hypertension; I73.89 Other specified peripheral vascular diseases; F15.90 Other stimulant use, unspecified, uncomplicated; F41.8 Other specified anxiety disorders; B19.20 Unspecified viral hepatitis C without hepatic coma; Z72.0 Tobacco use | CPT/HCPCS: 97597; 97598 ×4; A9270 ==

== ENCOUNTER → 2024-04-01 | Outpatient (CLI) | payer MEDICARE, MEDICAID, SELFPAY | END | disposition home or self-care (01) | LOC: SLDO 13:23 | PROVIDERS: PCP Internal Medicine; Referring Provider Internal Medicine; Visit Provider Internal Medicine | DX: I87.313 Chronic venous hypertension (idiopathic) with ulcer of bilateral lower extremity (principal) | CPT/HCPCS: 87070; 87077; 87186; 87205 ==

== ENCOUNTER → 2024-04-07 | Outpatient (CLI) | payer MEDICARE, MEDICAID, SELFPAY | END | disposition home or self-care (01) | PROVIDERS: PCP Internal Medicine; Referring Provider Internal Medicine; Visit Provider Student in an Organized Health Care Education/Training Program | DX: S90.821A Blister (nonthermal), right foot, initial encounter (principal); X58.XXXA Exposure to other specified factors, initial encounter; L97.821 Non-pressure chronic ulcer of other part of left lower leg limited to breakdown of skin; L97.822 Non-pressure chronic ulcer of other part of left lower leg with fat layer exposed; L97.818 Non-pressure chronic ulcer of other part of right lower leg with other specified severity; J44.9 Chronic obstructive pulmonary disease, unspecified; I10 Essential (primary) hypertension; I73.89 Other specified peripheral vascular diseases; F15.90 Other stimulant use, unspecified, uncomplicated; F41.8 Other specified anxiety disorders; B19.20 Unspecified viral hepatitis C without hepatic coma; I63.9 Cerebral infarction, unspecified | CPT/HCPCS: 97597; 97598 ×3; A9270 ==

== ENCOUNTER → 2024-04-14 | Outpatient (CLI) | payer OTHER, SELFPAY | END | disposition home or self-care (01) | PROVIDERS: PCP Internal Medicine; Referring Provider Internal Medicine; Visit Provider Surgery | DX: I87.313 Chronic venous hypertension (idiopathic) with ulcer of bilateral lower extremity (principal); S90.821A Blister (nonthermal), right foot, initial encounter; X58.XXXA Exposure to other specified factors, initial encounter; L97.821 Non-pressure chronic ulcer of other part of left lower leg limited to breakdown of skin; L97.822 Non-pressure chronic ulcer of other part of left lower leg with fat layer exposed; L97.818 Non-pressure chronic ulcer of other part of right lower leg with other specified severity; J44.9 Chronic obstructive pulmonary disease, unspecified; I63.9 Cerebral infarction, unspecified; I10 Essential (primary) hypertension; I73.89 Other specified peripheral vascular diseases; F15.90 Other stimulant use, unspecified, uncomplicated; F41.8 Other specified anxiety disorders; B19.20 Unspecified viral hepatitis C without hepatic coma; Z72.0 Tobacco use | CPT/HCPCS: 11042; A9270 ==

== ENCOUNTER → 2024-04-21 | Outpatient (CLI) | payer OTHER, SELFPAY | END | disposition home or self-care (01) | PROVIDERS: PCP Internal Medicine; Referring Provider Internal Medicine; Visit Provider Student in an Organized Health Care Education/Training Program | DX: I87.313 Chronic venous hypertension (idiopathic) with ulcer of bilateral lower extremity (principal); S90.821A Blister (nonthermal), right foot, initial encounter; X58.XXXA Exposure to other specified factors, initial encounter; L97.821 Non-pressure chronic ulcer of other part of left lower leg limited to breakdown of skin; L97.822 Non-pressure chronic ulcer of other part of left lower leg with fat layer exposed; L97.818 Non-pressure chronic ulcer of other part of right lower leg with other specified severity; J44.9 Chronic obstructive pulmonary disease, unspecified; I10 Essential (primary) hypertension; I73.89 Other specified peripheral vascular diseases; F15.90 Other stimulant use, unspecified, uncomplicated; F41.8 Other specified anxiety disorders; B19.20 Unspecified viral hepatitis C without hepatic coma; I63.9 Cerebral infarction, unspecified | CPT/HCPCS: 97597; 97598; A9270 ==

== ENCOUNTER → 2024-04-30 | Outpatient (CLI) | payer OTHER, SELFPAY | END | disposition home or self-care (01) | LOC: SWHD 13:48 | PROVIDERS: PCP Internal Medicine; Referring Provider Internal Medicine; Visit Provider Student in an Organized Health Care Education/Training Program | DX: I87.313 Chronic venous hypertension (idiopathic) with ulcer of bilateral lower extremity (principal); S90.821A Blister (nonthermal), right foot, initial encounter; X58.XXXA Exposure to other specified factors, initial encounter; L97.821 Non-pressure chronic ulcer of other part of left lower leg limited to breakdown of skin; L97.822 Non-pressure chronic ulcer of other part of left lower leg with fat layer exposed; L97.812 Non-pressure chronic ulcer of other part of right lower leg with fat layer exposed; J44.9 Chronic obstructive pulmonary disease, unspecified; I10 Essential (primary) hypertension; I73.89 Other specified peripheral vascular diseases; F15.90 Other stimulant use, unspecified, uncomplicated; F41.8 Other specified anxiety disorders; B19.20 Unspecified viral hepatitis C without hepatic coma; I63.9 Cerebral infarction, unspecified | CPT/HCPCS: 17250; 97598; 97597; A9270 ==

== ENCOUNTER → 2024-05-07 | Outpatient (CLI) | payer OTHER, SELFPAY | END | disposition home or self-care (01) | LOC: SWHD 13:49 | PROVIDERS: PCP Internal Medicine; Referring Provider Internal Medicine; Visit Provider Student in an Organized Health Care Education/Training Program | DX: S90.821A Blister (nonthermal), right foot, initial encounter (principal); X58.XXXA Exposure to other specified factors, initial encounter; L97.821 Non-pressure chronic ulcer of other part of left lower leg limited to breakdown of skin; L97.822 Non-pressure chronic ulcer of other part of left lower leg with fat layer exposed; L97.818 Non-pressure chronic ulcer of other part of right lower leg with other specified severity; J44.9 Chronic obstructive pulmonary disease, unspecified; I10 Essential (primary) hypertension; I73.89 Other specified peripheral vascular diseases; F15.90 Other stimulant use, unspecified, uncomplicated; F41.8 Other specified anxiety disorders; B19.20 Unspecified viral hepatitis C without hepatic coma; I63.9 Cerebral infarction, unspecified | CPT/HCPCS: 11042; 11045; 97597; A9270 ==

== ENCOUNTER → 2024-05-14 | Outpatient (CLI) | payer MEDICARE, SELFPAY | END | disposition home or self-care (01) | LOC: SWHD 13:00 | PROVIDERS: PCP Internal Medicine; Referring Provider Internal Medicine; Visit Provider Student in an Organized Health Care Education/Training Program | DX: S90.821A Blister (nonthermal), right foot, initial encounter (principal); X58.XXXA Exposure to other specified factors, initial encounter; L97.821 Non-pressure chronic ulcer of other part of left lower leg limited to breakdown of skin; L97.822 Non-pressure chronic ulcer of other part of left lower leg with fat layer exposed; L97.818 Non-pressure chronic ulcer of other part of right lower leg with other specified severity; J44.9 Chronic obstructive pulmonary disease, unspecified; I10 Essential (primary) hypertension; I73.89 Other specified peripheral vascular diseases; F15.90 Other stimulant use, unspecified, uncomplicated; F41.8 Other specified anxiety disorders; B19.20 Unspecified viral hepatitis C without hepatic coma; I63.9 Cerebral infarction, unspecified | CPT/HCPCS: 17250; A9270 ==

== ENCOUNTER → 2024-05-21 | Outpatient (CLI) | payer MEDICARE, SELFPAY | END | disposition home or self-care (01) | LOC: SWHD 13:25 | PROVIDERS: PCP Internal Medicine; Referring Provider Internal Medicine; Visit Provider Student in an Organized Health Care Education/Training Program | DX: L97.522 Non-pressure chronic ulcer of other part of left foot with fat layer exposed (principal); J44.9 Chronic obstructive pulmonary disease, unspecified; I10 Essential (primary) hypertension; I73.89 Other specified peripheral vascular diseases; B19.20 Unspecified viral hepatitis C without hepatic coma; I63.9 Cerebral infarction, unspecified; F15.90 Other stimulant use, unspecified, uncomplicated | CPT/HCPCS: 17250; A9270 ==

== ENCOUNTER → 2024-05-22 | Outpatient (CLI) | payer MEDICARE, MEDICAID, SELFPAY ==
[2024-05-22 11:31] LABS: Basophils # (Auto) 0.1 Thou/mm3 (0.0-0.2); Basophils % (Auto) 1 % (0-2.5); Eosinophils # (Auto) 0.2 Thou/mm3 (0.0-0.5); Eosinophils % (Auto) 3 % (0-10); Hematocrit 36.8 % (41.0-53.0); Hemoglobin 12.3 g/dL (13.5-16.0); Immature Granulocytes % (Auto) 0 % (0-0); Immature Granulocytes Auto 0.01 Thou/mm3 (0.00-0.00); Lymphocytes % (Auto) 36 % (10-50); Mean Corpuscular HGB Conc 33.4 g/dl (31.0-37.0); Mean Corpuscular Hemoglobin 29.5 pg (25.0-35.0); Mean Corpuscular Volume 88 fL (80-100); Monocytes # (Auto) 0.6 Thou/mm3 (0.0-0.8); Monocytes % (Auto) 11 % (0-12); Neutrophils # (Auto) 2.8 Thou/mm3 (1.8-7.7); Neutrophils % (Auto) 49 % (37-80); Nucleated Red Blood Cell % 0 /100 WBC (0); Platelet Count 155 Thou/mm3 (140-440); Red Blood Count 4.17 Miln/mm3 (4.50-5.90); White Blood Count 5.6 Thou/mm3 (3.8-10.6)
[2024-05-22 11:38] LABS: Glucose Estimated Average 103 mg/dL (80-131); Hemoglobin A1C 5.2 % Hgb (4.8-6.0)
[2024-05-22 11:46] LABS: Sed Rate (ESR) 38 mm/hr (0-20)
[2024-05-22 12:10] LABS: Alanine Aminotransferase 26 U/L (10-49); Albumin, Serum 3.3 gm/dL (3.4-4.8); Albumin/Globulin Ratio 0.7 (1.2-2.2); Alkaline Phosphatase 225 U/L (46-116); Anion Gap 5 (7-16); Aspartate Amino Transferase 43 U/L (0-34); BUN/Creatinine Ratio 32 Ratio (12-20); Bilirubin,Total 0.6 mg/dL (0.3-1.2); Blood Urea Nitrogen 16 mg/dL (9-23); C-Reactive Protein < 0.5 mg/dL (0.0-0.9); Calcium 8.6 mg/dL (8.3-10.6); Calcium (Corrected) 9.2 mg/dL (8.5-10.1); Carbon Dioxide 26.8 mMol/L (20.0-31.0); Cardiac Risk Estimate 1.8 RATIO (4.0-6.7); Chloride 108 mMol/L (98-107); Cholesterol 92 mg/dL (132-200); Creatinine (Component) 0.5 mg/dL (0.6-1.3); Globulin 4.8 gm/dL (2.3-3.5); Glucose 111 mg/dL (74-106); HDL Cholesterol 50 mg/dL (40-60); LDL Cholesterol,Calculated 32 mg/dL (0-130); Osmolality,Calculated 281 (275-295); Potassium 4.6 mMol/L (3.4-5.1); Sodium 140 mMol/L (136-145); Thyroid Stimulating Hormone 1.41 uIU/mL (0.55-4.78); Total Protein 8.1 gm/dL (5.7-8.2); Triglycerides 50 mg/dL (30-150); eGFR > 60 See Note
[2024-05-22 12:39] LABS: Hepatitis A Antibody IgM Non Reactive (Non React); Hepatitis B Core Antibody IgM Non Reactive (Non React); Hepatitis B Surface Antigen Non Reactive (Non React); Hepatitis C Antibody Reactive (Non React); Vitamin B12 725 pg/mL (211-911)
[2024-05-25 11:17] LABS: HCV RNA, PCR 780000 IU/mL
[2024-05-26 08:19] LABS: HCV RNA, PCR Log IU 5.89 Log IU/mL
== END | disposition home or self-care (01) ==
PROVIDERS: PCP Internal Medicine; Referring Provider Internal Medicine; Visit Provider Internal Medicine
DX: M86.171 Other acute osteomyelitis, right ankle and foot (principal); S91.302D Unspecified open wound, left foot, subsequent encounter; X58.XXXD Exposure to other specified factors, subsequent encounter; I10 Essential (primary) hypertension; Z12.5 Encounter for screening for malignant neoplasm of prostate; D64.9 Anemia, unspecified; E53.9 Vitamin B deficiency, unspecified; R79.9 Abnormal finding of blood chemistry, unspecified; Z79.899 Other long term (current) drug therapy; B18.2 Chronic viral hepatitis C; I63.9 Cerebral infarction, unspecified
CPT/HCPCS: 36415; 80053; 80061; 80074; 82607; 83036; 84443; 85025; 85652; 86140; 87522

== ENCOUNTER → 2024-05-28 | Outpatient (CLI) | payer MEDICARE, SELFPAY | END | disposition home or self-care (01) | LOC: SWHD 13:16 | PROVIDERS: PCP Internal Medicine; Referring Provider Internal Medicine; Visit Provider Surgery | DX: L97.522 Non-pressure chronic ulcer of other part of left foot with fat layer exposed (principal); J44.9 Chronic obstructive pulmonary disease, unspecified; I10 Essential (primary) hypertension; I73.89 Other specified peripheral vascular diseases; B19.20 Unspecified viral hepatitis C without hepatic coma; I63.9 Cerebral infarction, unspecified; F15.90 Other stimulant use, unspecified, uncomplicated | CPT/HCPCS: 29580; A9270 ==

== ENCOUNTER → 2024-06-04 | Outpatient (CLI) | payer MEDICARE, SELFPAY | END | disposition home or self-care (01) | LOC: SWHD 13:16 | PROVIDERS: PCP Internal Medicine; Referring Provider Internal Medicine; Visit Provider Student in an Organized Health Care Education/Training Program | DX: L97.522 Non-pressure chronic ulcer of other part of left foot with fat layer exposed (principal); J44.9 Chronic obstructive pulmonary disease, unspecified; I10 Essential (primary) hypertension; I73.89 Other specified peripheral vascular diseases; B19.20 Unspecified viral hepatitis C without hepatic coma; I63.9 Cerebral infarction, unspecified; F15.90 Other stimulant use, unspecified, uncomplicated | CPT/HCPCS: 11042; A9270 ==

== ENCOUNTER → 2024-06-11 | Outpatient (CLI) | payer MEDICARE, SELFPAY | END | disposition home or self-care (01) | PROVIDERS: PCP Internal Medicine; Referring Provider Internal Medicine; Visit Provider Surgery | DX: L97.522 Non-pressure chronic ulcer of other part of left foot with fat layer exposed (principal); J44.9 Chronic obstructive pulmonary disease, unspecified; I10 Essential (primary) hypertension; I73.89 Other specified peripheral vascular diseases; B19.20 Unspecified viral hepatitis C without hepatic coma; I63.9 Cerebral infarction, unspecified; F15.90 Other stimulant use, unspecified, uncomplicated | CPT/HCPCS: 29580; A9270 ==

== ENCOUNTER → 2024-06-18 | Outpatient (CLI) | payer MEDICARE, SELFPAY | END | disposition home or self-care (01) | LOC: SWHD 13:13 | PROVIDERS: PCP Internal Medicine; Referring Provider Internal Medicine; Visit Provider Student in an Organized Health Care Education/Training Program | DX: L97.522 Non-pressure chronic ulcer of other part of left foot with fat layer exposed (principal); J44.9 Chronic obstructive pulmonary disease, unspecified; I10 Essential (primary) hypertension; I73.9 Peripheral vascular disease, unspecified; B19.20 Unspecified viral hepatitis C without hepatic coma; I63.9 Cerebral infarction, unspecified; F15.90 Other stimulant use, unspecified, uncomplicated | CPT/HCPCS: 11042; 11045; A9270 ==

== ENCOUNTER → 2024-07-09 | Outpatient (CLI) | payer MEDICARE, SELFPAY | END | disposition home or self-care (01) | LOC: SWHD 13:13 | PROVIDERS: PCP Internal Medicine; Referring Provider Internal Medicine; Visit Provider Surgery | DX: L97.522 Non-pressure chronic ulcer of other part of left foot with fat layer exposed (principal); J44.9 Chronic obstructive pulmonary disease, unspecified; I10 Essential (primary) hypertension; I73.9 Peripheral vascular disease, unspecified; B19.20 Unspecified viral hepatitis C without hepatic coma; I63.9 Cerebral infarction, unspecified; F15.90 Other stimulant use, unspecified, uncomplicated | CPT/HCPCS: 17250; A9270 ==

== ENCOUNTER → 2024-07-16 | Outpatient (CLI) | payer MEDICARE, SELFPAY | END | disposition home or self-care (01) | LOC: SWHD 13:17 | PROVIDERS: PCP Internal Medicine; Referring Provider Internal Medicine; Visit Provider Surgery | DX: L97.522 Non-pressure chronic ulcer of other part of left foot with fat layer exposed (principal); J44.9 Chronic obstructive pulmonary disease, unspecified; I10 Essential (primary) hypertension; I73.9 Peripheral vascular disease, unspecified; B19.20 Unspecified viral hepatitis C without hepatic coma; I63.9 Cerebral infarction, unspecified; F15.90 Other stimulant use, unspecified, uncomplicated | CPT/HCPCS: 99213; A9270; G0463 ==

== ENCOUNTER → 2024-07-23 | Outpatient (CLI) | payer MEDICARE, SELFPAY | END | disposition home or self-care (01) | LOC: SWHD 13:36 | PROVIDERS: PCP Internal Medicine; Referring Provider Internal Medicine; Visit Provider Student in an Organized Health Care Education/Training Program | DX: L97.522 Non-pressure chronic ulcer of other part of left foot with fat layer exposed (principal); J44.9 Chronic obstructive pulmonary disease, unspecified; I73.9 Peripheral vascular disease, unspecified; B19.20 Unspecified viral hepatitis C without hepatic coma; I63.9 Cerebral infarction, unspecified; F15.90 Other stimulant use, unspecified, uncomplicated | CPT/HCPCS: 17250; A9270 ==

== ENCOUNTER → 2024-07-29 | Outpatient (CLI) | payer MEDICARE, SELFPAY | END | disposition home or self-care (01) | LOC: SWHD 10:11 | PROVIDERS: PCP Internal Medicine; Referring Provider Internal Medicine; Visit Provider Student in an Organized Health Care Education/Training Program | DX: L97.522 Non-pressure chronic ulcer of other part of left foot with fat layer exposed (principal); J44.9 Chronic obstructive pulmonary disease, unspecified; B19.20 Unspecified viral hepatitis C without hepatic coma; F15.90 Other stimulant use, unspecified, uncomplicated; I63.9 Cerebral infarction, unspecified | CPT/HCPCS: 11042; 11045; A9270 ==

== ENCOUNTER → 2024-08-06 | Outpatient (CLI) | payer OTHER, SELFPAY ==
--- NOTE | 2024-08-06 15:00 | XR_ITS ---
Examination: MRI right ankle, without contrast Date and time of exam: August 06, 2024, 1813 hours INDICATIONS: Open wound nonhealing involving the foot and toes beginning February 2024 Technique: Multiple axial sagittal and coronal images of the right ankle have been obtained with the Siemens high-resolution 1.5 Karol MRI scanner. Images obtained include T2-weighted fat-suppressed sagittal sections, TR 3500, TE 46, T2 weighted coronal fat suppressed images, TR 3050, TE 84, T2-weighted transverse fat suppressed images, TR 3260, TE 63, proton density transverse images, TR 4720 TE 46, and T1 weighted coronal images, TR 560, TE 13. Findings: Multiple focal areas of increased signal throughout all visualized bones, reflex sympathetic dystrophy pattern No sirisha cortical bone destruction involving distal tibia and distal fibular, talus, calcaneus, cuboid or cuneiforms and navicular Thickening of the plantar fascia No soft tissue abscess IMPRESSION: Reflex sympathetic dystrophy pattern. No soft tissue abscess Negative for ankle osteomyelitis
--- NOTE | 2024-08-06 15:30 | XR_ITS ---
Examination: MRI right foot, without contrast Date and time of exam: August 06, 2024, 1613 hours Comparison February 28, 2024 INDICATIONS: Nonhealing wound toes and foot beginning February 2024 soft tissue swelling dorsum of the foot Technique: Multiple axial sagittal and coronal images of the right foot have been obtained with the Siemens high-resolution 1.5 Karol MRI scanner. Images obtained include T2-weighted fat-suppressed sagittal sections, TR 3500, TE 46, T2 weighted coronal fat suppressed images, TR 3050, TE 84, T2-weighted transverse fat suppressed images, TR 3260, TE 63, proton density transverse images, TR 4720 TE 46, and T1 weighted coronal images, TR 560, TE 13. Findings: Cortical erosion involving the dorsal surface of the distal phalanx at digit Prominent soft tissue swelling dorsum of the foot Flexor extensor tendons intact No soft tissue fluid filled abscess No current foreign body No acute fractures No Lisfranc tarsometatarsal dislocations IMPRESSION: Osteomyelitis distal phalanx fifth digit
== END | disposition home or self-care (01) ==
PROVIDERS: PCP Internal Medicine; Referring Provider Internal Medicine; Visit Provider Internal Medicine
DX: M86.171 Other acute osteomyelitis, right ankle and foot (principal); M86.8X7 Other osteomyelitis, ankle and foot
CPT/HCPCS: 73718; 73721

== ENCOUNTER → 2024-08-07 | Outpatient (CLI) | payer MEDICARE, SELFPAY ==
--- NOTE | 2024-08-07 08:00 | XR_ITS ---
Examination: MRI left ankle without contrast Date and time of exam: August 07, 2024 0923 hours INDICATIONS: (Nonhealing involving the ankle and toes 7 months Technique: Multiple axial sagittal and coronal images of the left ankle have been obtained with the Siemens high-resolution 1.5 Karol MRI scanner. Images obtained include T2-weighted fat-suppressed sagittal sections, TR 3500, TE 46, T2 weighted coronal fat suppressed images, TR 3050, TE 84, T2-weighted transverse fat suppressed images, TR 3260, TE 63, proton density transverse images, TR 4720 TE 46, and T1 weighted coronal images, TR 560, TE 13. Findings: Diffuse edema in the subcutaneous fatty tissues surrounding the ankle Thickened Achilles tendon Mild plantar fasciitis Focal areas of increased signal in the bones of the ankle consistent with reflex sympathetic dystrophy No sirisha cortical bone destruction Minimal ankle effusion Anterior posterior inferior tibiofibular ligaments intact Talar fibular ligaments intact Mild diffuse flexor tendinitis Extensor tendons intact IMPRESSION: Negative for osteomyelitis
--- NOTE | 2024-08-07 08:30 | XR_ITS ---
Examination: MRI left foot, without contrast Date and time of exam: August 07, 2024 0944 hours INDICATIONS: (Nonhealing wounds involving the toes of the left leg with pain and swelling 7 months Technique: Multiple axial sagittal and coronal images of the left foot have been obtained with the Siemens high-resolution 1.5 Karol MRI scanner. Images obtained include T2-weighted fat-suppressed sagittal sections, TR 3500, TE 46, T2 weighted coronal fat suppressed images, TR 3050, TE 84, T2-weighted transverse fat suppressed images, TR 3260, TE 63, proton density transverse images, TR 4720 TE 46, and T1 weighted coronal images, TR 560, TE 13. Findings: Cortical erosion involving the ungual tuft tip distal phalanx fifth digit Remaining digits intact Soft tissue swelling surrounding the digits No soft tissue abscess Edema dorsal to the first metatarsophalangeal joint Metatarsals intact Plantar fascia intact IMPRESSION: Early osteomyelitis ungual tuft tip distal phalanx fifth digit
== END | disposition home or self-care (01) ==
LOC: SMRI 08:29
PROVIDERS: PCP Internal Medicine; Referring Provider Internal Medicine; Visit Provider Internal Medicine
DX: M86.8X7 Other osteomyelitis, ankle and foot (principal)
CPT/HCPCS: 73718; 73721

== ENCOUNTER → 2024-08-19 | Outpatient (CLI) | payer MEDICARE, SELFPAY | END | disposition home or self-care (01) | LOC: SWHD 12:34 | PROVIDERS: PCP Internal Medicine; Referring Provider Internal Medicine; Visit Provider Student in an Organized Health Care Education/Training Program | DX: L97.522 Non-pressure chronic ulcer of other part of left foot with fat layer exposed (principal); J44.9 Chronic obstructive pulmonary disease, unspecified; I73.9 Peripheral vascular disease, unspecified; I63.9 Cerebral infarction, unspecified; F15.90 Other stimulant use, unspecified, uncomplicated | CPT/HCPCS: 97597; 97598 ×2; A9270 ==

== ENCOUNTER → 2024-09-03 | Outpatient (CLI) | payer MEDICARE, SELFPAY | END | disposition home or self-care (01) | LOC: SWHD 13:15 | PROVIDERS: PCP Internal Medicine; Referring Provider Internal Medicine; Visit Provider Student in an Organized Health Care Education/Training Program | DX: L97.522 Non-pressure chronic ulcer of other part of left foot with fat layer exposed (principal); J44.9 Chronic obstructive pulmonary disease, unspecified; I73.9 Peripheral vascular disease, unspecified; I63.9 Cerebral infarction, unspecified; F15.90 Other stimulant use, unspecified, uncomplicated | CPT/HCPCS: 97597; A9270 ==

== ENCOUNTER → 2024-09-10 | Outpatient (CLI) | payer MEDICARE, SELFPAY | END | disposition home or self-care (01) | LOC: SWHD 13:44 | PROVIDERS: PCP Internal Medicine; Referring Provider Internal Medicine; Visit Provider Student in an Organized Health Care Education/Training Program | DX: L97.522 Non-pressure chronic ulcer of other part of left foot with fat layer exposed (principal); J44.9 Chronic obstructive pulmonary disease, unspecified; I73.9 Peripheral vascular disease, unspecified; I63.9 Cerebral infarction, unspecified; F15.90 Other stimulant use, unspecified, uncomplicated | CPT/HCPCS: 97597; 97598 ×2; A9270 ==

== ENCOUNTER → 2024-09-17 | Outpatient (CLI) | payer MEDICARE, SELFPAY | END | disposition home or self-care (01) | LOC: SWHD 14:12 | PROVIDERS: PCP Internal Medicine; Referring Provider Internal Medicine; Visit Provider Student in an Organized Health Care Education/Training Program | DX: L97.522 Non-pressure chronic ulcer of other part of left foot with fat layer exposed (principal); J44.9 Chronic obstructive pulmonary disease, unspecified; I73.9 Peripheral vascular disease, unspecified; I63.9 Cerebral infarction, unspecified; F15.90 Other stimulant use, unspecified, uncomplicated | CPT/HCPCS: 97597; 97598; 17250; A9270 ==

== ENCOUNTER → 2024-10-22 | Outpatient (CLI) | payer OTHER, SELFPAY | END | disposition home or self-care (01) | LOC: SWHD 11:13 | PROVIDERS: PCP Family Medicine; Referring Provider Family Medicine; Visit Provider Student in an Organized Health Care Education/Training Program | DX: L97.522 Non-pressure chronic ulcer of other part of left foot with fat layer exposed (principal); J44.9 Chronic obstructive pulmonary disease, unspecified; I73.9 Peripheral vascular disease, unspecified; I63.9 Cerebral infarction, unspecified; F15.90 Other stimulant use, unspecified, uncomplicated | CPT/HCPCS: 11042; 11045 ×2; A9270 ==

== ENCOUNTER → 2024-10-29 | Outpatient (CLI) | payer OTHER, SELFPAY | END | disposition home or self-care (01) | PROVIDERS: PCP Internal Medicine; Referring Provider Internal Medicine; Visit Provider Student in an Organized Health Care Education/Training Program | DX: L97.522 Non-pressure chronic ulcer of other part of left foot with fat layer exposed (principal); J44.9 Chronic obstructive pulmonary disease, unspecified; I73.9 Peripheral vascular disease, unspecified; I63.9 Cerebral infarction, unspecified; F15.90 Other stimulant use, unspecified, uncomplicated | CPT/HCPCS: 97597; 97598 ==

== ENCOUNTER → 2024-10-30 | Outpatient (CLI) | payer OTHER, SELFPAY ==
--- NOTE | 2024-10-30 14:27 | XR_ITS ---
Examination: Foot, left, 3 views Technique: AP, oblique, lateral views foot, 3 views Date and time of exam: October 30, 2024 1431 hours INDICATIONS: Redness swelling and pain involving the left foot this week FINDINGS: Severe osteopenia Soft tissue swelling involving the talus No fracture No sirisha cortical bone destruction Pes planus Soft tissue swelling also dorsum of the foot IMPRESSION: No sirisha cortical bone destruction Please see the MRI foot report August 07, 2024, consider repeat examination
== END | disposition home or self-care (01) ==
PROVIDERS: PCP Family Medicine; Referring Provider Student in an Organized Health Care Education/Training Program; Visit Provider Student in an Organized Health Care Education/Training Program
DX: M25.475 Effusion, left foot (principal); I87.332 Chronic venous hypertension (idiopathic) with ulcer and inflammation of left lower extremity
CPT/HCPCS: 73630

== ENCOUNTER → 2024-11-03 | Outpatient (CLI) | payer OTHER, SELFPAY | END | disposition home or self-care (01) | LOC: SWHD 13:31 | PROVIDERS: PCP Internal Medicine; Referring Provider Internal Medicine; Visit Provider Student in an Organized Health Care Education/Training Program | DX: L97.522 Non-pressure chronic ulcer of other part of left foot with fat layer exposed (principal); J44.9 Chronic obstructive pulmonary disease, unspecified; I73.9 Peripheral vascular disease, unspecified; I63.9 Cerebral infarction, unspecified; F15.90 Other stimulant use, unspecified, uncomplicated | CPT/HCPCS: 11042; 11045 ×2; A9270 ==

== ENCOUNTER 2024-11-04 12:23 | Inpatient (IN) | payer MEDICARE, MEDICAID, SELFPAY ==
[2024-11-04] VITALS (10 sets, daily range): BP systolic 125–164; BP diastolic 69–114; PULSE 70–95; RESP 18–20; TEMP 36.1–36.9; O2SAT 95–99; BMI 25.8; BMI 26.2
--- NOTE | 2024-11-04 13:00 | XR_ITS ---
Examination: CT abdomen and pelvis without contrast. Coronal 3-D reconstructions. Sagittal 2-D reconstructions. Date and time of exam:November 04, 2024, 1308 hours, comparison CT chest abdomen pelvis February 26, 2024 INDICATIONS: Generalized abdominal pain and distention with constipation today CTDI: vol (mGy): 8.37 DLP: (mGycm): 506 Technique: Axial images of the abdomen have been obtained, 3 mm slice thickness Intravenous contrast material has not been administered. Low dose protocols were performed. One or more of the following dose reduction techniques were used; automated exposure control, adjustment of the mA and/or KV according to patient size, use of iterative reconstruction technique. Findings: 2 mm pulmonary nodule right middle lobe, 4 mm pleural-based pulmonary nodule left lower lobe Liver irregular in contour 13 mm posterior right lobe liver cyst Cholelithiasis No pancreatic or splenic mass No renal or ureteral calculi, no hydronephrosis Small bowel obstruction, multiple fluid distended small bowel loops with incarcerated small bowel in an umbilical hernia axial image 134 Contracted urinary bladder No significant prostatomegaly Fat-containing inguinal hernias Prominent osteopenia with advanced disc narrowing L5-S1 IMPRESSION: Pulmonary nodules as above, follow-up needed Small bowel obstruction secondary to incarcerated small bowel in an umbilical hernia
--- NOTE | 2024-11-04 13:01 | PD.EDRME ---
Rapid Medical Screening Exam RME Arrival date/time: 11/04/24 12:23 64-year-old male with no known medical history presents to the emergency room with a chief complaint of 10 out of 10 abdominal pain x 2 days I have greeted and performed a focused initial assessment of this patient. A comprehensive ED assessment and evaluation of the patient, analysis of all test results, and completion of the medical decision making process will be conducted by additional ED providers. Chief Complaint: Abdominal Pain Time Seen by Provider: 11/04/24 12:51 Vital signs: Vital Signs Temperature 97.8 F 11/04/24 12:58 Pulse Rate 92 11/04/24 12:58 Respiratory Rate 20 11/04/24 12:58 Blood Pressure 164/112 H 11/04/24 12:58 Pulse Oximetry (%) 95 11/04/24 12:58 Oxygen Delivery Method Room Air 11/04/24 12:58 Vital signs reviewed by provider: Yes
[2024-11-04 13:43] LABS: Collection Type, Urine Clean Catch
[2024-11-04 13:59] LABS: Basophils # (Auto) 0.0 Thou/mm3 (0.0-0.2); Basophils % (Auto) 0 % (0-2.5); Eosinophils # (Auto) 0.0 Thou/mm3 (0.0-0.5); Eosinophils % (Auto) 0 % (0-10); Hematocrit 49.6 % (41.0-53.0); Hemoglobin 16.9 g/dL (13.5-16.0); Immature Granulocytes Auto 0.02 Thou/mm3 (0.00-0.00); Lymphocytes # (Auto) 0.9 Thou/mm3 (1.0-4.8); Lymphocytes % (Auto) 9 % (10-50); Mean Corpuscular HGB Conc 34.1 g/dl (31.0-37.0); Mean Corpuscular Hemoglobin 29.8 pg (25.0-35.0); Mean Corpuscular Volume 88 fL (80-100); Monocytes # (Auto) 0.4 Thou/mm3 (0.0-0.8); Monocytes % (Auto) 5 % (0-12); Neutrophils # (Auto) 8.2 Thou/mm3 (1.8-7.7); Neutrophils % (Auto) 86 % (37-80); Nucleated Red Blood Cell # 0.00 Thou/mm3 (0.00-0.00); Nucleated Red Blood Cell % 0 /100 WBC (0); Platelet Count 200 Thou/mm3 (140-440); RDW Standard Deviation 43.8 fL (35.1-43.9); Red Blood Count 5.67 Miln/mm3 (4.50-5.90); White Blood Count 9.6 Thou/mm3 (3.8-10.6)
[2024-11-04 14:04] LABS: Bilirubin,Urine Negative (Negative); Blood,Urine Trace (Negative); Clarity,Urine Clear (Clear/Hazy); Color,Urine Yellow (Lt Yel-Yel); Glucose, Urine Negative (Negative); Ketones,Urine Trace (Negative); Leukocyte Esterase,Urine Negative (Negative); Nitrite,Urine Negative (Negative); PH,Urine 6.5 (5.0-7.0); Protein,Urine 1+ (Neg - Trace); RBC,Urine 8 /hpf (0-3); Specific Gravity,Urine 1.030 (1.001-1.035); Squamous Epithelial Cell,Urine 1 /hpf (0-5); Urobilinogen,Urine 3.0 mg/dL (0.0-1.0); WBC,Urine 3 /hpf (0-5)
[2024-11-04] MEDS: HYDROcodone/APAP 5/325 TABLET 1 TAB PO (14:07)
[2024-11-04 14:11] LABS: Amphetamine/Methamp Scrn,U Positive (Negative); Barbiturate Screen,Urine Negative (Negative); Benzodiazepines Screen,Urine Negative (Negative); Benzoylecgonine Screen, Ur Negative (Negative); Fentanyl Screen,Urine Negative (Negative); Opiate Screen,Urine Negative (Negative); THC Screen,Urine Negative (Negative)
[2024-11-04 14:21] LABS: Alanine Aminotransferase 28 U/L (10-49); Albumin, Serum 3.8 gm/dL (3.4-4.8); Albumin/Globulin Ratio 0.6 (1.2-2.2); Alkaline Phosphatase 226 U/L (46-116); Anion Gap 9 (7-16); Aspartate Amino Transferase 43 U/L (0-34); BUN/Creatinine Ratio 17 Ratio (12-20); Bilirubin,Total 1.2 mg/dL (0.3-1.2); Blood Urea Nitrogen 10 mg/dL (9-23); Calcium 9.4 mg/dL (8.3-10.6); Calcium (Corrected) 9.6 mg/dL (8.5-10.1); Carbon Dioxide 27.1 mMol/L (20.0-31.0); Chloride 98 mMol/L (98-107); Creatinine (Component) 0.6 mg/dL (0.6-1.3); Estimated Creatinine Clearance 131.8 mL/min (>60); Globulin 6.1 gm/dL (2.3-3.5); Glucose 145 mg/dL (74-106); Lipase 25 U/L (12-53); Osmolality,Calculated 270 (275-295); Potassium 3.7 mMol/L (3.4-5.1); Sodium 134 mMol/L (136-145); Total Protein 9.9 gm/dL (5.7-8.2); eGFR > 60 See Note
[2024-11-04 16:20] LABS: INR 1.2 (0.9-1.3); Partial Thromboplastin Time 33.1 Seconds (22.0-36.0); Prothrombin Time 12.8 Seconds (9.0-12.2)
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
--- NOTE | 2024-11-04 17:55 | PD.RESHP ---
Documentation for date of: 11/04/24 HPI History of Present Illness History of present illness: Patient is a 64 year old male with past medical history of alcohol/tobacco/polysubstance abuse, on chronic methadone, hypertension, PAD with chronic ulcers on bilateral lower extremity, COPD on 5 L oxygen at home, untreated hepatitis C who presents on 11/04 for lower abdominal pain since yesterday. Last bowel movement 4PM yesterday but has not been passing gas. Tried taking Miralax without improvement. Denies fever, nausea, vomiting, diarrhea. Of note patient has history of abdominal surgery 22 years ago for possible perforation. Has umbilical hernia. No prior episodes of obstruction. ED Course: -Initial vitals were BP 164/112, afebrile, saturating well on room air -Labs significant for WBC WNL, Hgb 16.9. Na 134, AST 43, ALT 28, alk phos 226, lipase 25. -Imaging included CT A/P showed SBO secondary to umbilical hernia as well as 2mm mm pulmonary nodule right middle lobe, 4 mm pleural-based pulmonary nodule left lower lobe, irregular liver contour with right lobe liver cyst, cholelithiasis, and fat containing inguinal hernias. -In the ED, patient was given [place] and NS bolus -Patient was admitted for SBO secondary to umbilical hernia. Surgeon Dr. Goldman was consulted by the ED, will keep NPO in anticipation for surgery. Review of Systems Review of systems otherwise negative except what is mentioned above. Past Medical History: as above Surgical History: abdominal surgery 22 years ago, left knee surgery Social History: Smokes 7 cigarettes a day since 18 years old. Remote alcohol use. Previously used heroin, fentanyl, and opioids Current Medications: pending official med rec Allergies: No known drug allergies Exam Vital Signs Temp Pulse Resp BP Pulse Ox O2 Del Method 98.4 F 94 18 145/97 H 98 Room Air 11/04/24 15:26 11/04/24 16:25 11/04/24 16:25 11/04/24 16:25 11/04/24 16:11/04/24 16:25 Narrative Exam Physical Exam General: Awake and in no acute distress. Conversational and non-toxic appearing. HEENT: Normocephalic, atraumatic, mucous membranes moist. Heart: Regular rate and rhythm, normal S1 and S2, no murmurs. Lungs: Clear to auscultation with no wheezing or crackles. Abdomen: Soft, nondistended, severely tender in umbilical area, decreased bowel sounds. No guarding or rebound tenderness. Neurologic: Alert and oriented x3, no gross neurological deficit, and patient able to move all 4 extremities. Extremities: Chronic wounds on lower bilateral extremities. Dressings clean and intact. Skin: No rash or ecchymoses. Results: Labs 11/05/24 05:14 11/05/24 05:14 Labs: Short CBC 11/04/24 Range/Units 13:31 WBC 9.6 (3.8-10.6) Thou/mm3 Hgb 16.9 H (13.5-16.0) g/dL Hct 49.6 (41.0-53.0) % Plt Count 200 (140-440) Thou/mm3 BMP 11/04/24 13:31 Sodium 134 L Potassium 3.7 Chloride 98 Carbon Dioxide 27.1 BUN 10 Creatinine 0.6 Glucose 145 H Calcium 9.4 Liver Function 11/04/24 Range/Units 13:31 Total Bilirubin 1.2 (0.3-1.2) mg/dL AST 43 H (0-34) U/L ALT 28 (10-49) U/L Alkaline Phosphatase 226 H (46-116) U/L Albumin 3.8 (3.4-4.8) gm/dL Urine 11/04/24 Range/Units 13:36 Urine Color Yellow (Lt Yel-Yel) Urine Clarity Clear (Clear/Hazy) Urine pH 6.5 (5.0-7.0) Ur Specific [place] 1.030 (1.001-1.035) Urine Protein 1+ A (Neg - Trace) Urine Glucose (UA) Negative (Negative) Quality Measures Quality Measures VTE prophylaxis Medications Home Medications and Allergies Home Medications ?Medication ?Instructions ?Recorded ?Confirmed ?Type fluticasone 250 mcg-salmeterol 50 1 inh inhalation QDAY 09/19/21 11/05/24 History mcg/dose blistr powdr for inhalation methadone 10 mg/5 mL oral solution 60 mg PO QDAY 07/31/22 11/05/24 History atorvastatin 80 mg tablet 80 mg PO HS 12/18/22 11/05/24 History furosemide 20 mg tablet 20 mg PO QDAY 12/18/22 11/05/24 History loratadine 10 mg tablet 10 mg PO QDAY 12/18/22 11/05/24 History acamprosate 333 mg tablet,delayed 333 mg PO QDAY 02/27/24 11/05/24 History release aspirin 81 mg tablet,delayed 81 mg PO DAILY 02/27/24 11/05/24 History release buspirone 5 mg tablet 5 mg PO BID 02/27/24 11/05/24 History buspirone 5 mg tablet 5 mg PO BID 02/27/24 11/05/24 History clopidogrel 75 mg tablet 75 mg PO DAILY 02/27/24 11/05/24 History pantoprazole 40 mg tablet,delayed 40 mg PO QDAY 02/27/24 11/05/24 History release thiamine HCl (vitamin B1) 100 mg 100 mg PO QDAY 02/27/24 11/05/24 History tablet Allergies Allergy/AdvReac Type Severity Reaction Status Date / Time No Known Allergies Allergy Verified 11/04/24 22:37 Visit Medications Acetaminophen (Acetaminophen 325 Mg Tablet) 650 mg PO Q6H PRN PRN Reason: Fever >101.5 and pain 1-3 Stop: 12/04/24 17:11 Hydromorphone HCl (Hydromorphone Inj 2 Mg/Ml Vial) 0.5 mg IVP Q4HR PRN PRN Reason: pain 4-6 Stop: 11/09/24 17:27 Hydromorphone HCl (Hydromorphone Inj 2 Mg/Ml Vial) 1 mg IVP Q4HR PRN PRN Reason: Pain 7-10 Stop: 11/09/24 17:27 Sodium Chloride (Ns) 1,000 mls @ 100 mls/hr IV .Q10H CLAUDY Stop: 12/04/24 16:27 Piperacillin/Tazobactam/Dextrose (Zosyn) 3.375 gm in 50 mls @ 100 mls/hr IV Q6HR CLAUDY; Protocol Stop: 11/11/24 17:25 Ondansetron HCl (Ondansetron Inj 2 Mg/Ml Inj 2 Ml) 4 mg IVP Q6H PRN; Protocol PRN Reason: NAUSEA OR VOMITING Stop: 12/04/24 17:11 Discontinued Medications Hydrocodone Bitart/Acetaminophen (Hydrocodone/Apap 5/325 Tablet) 1 tab PO X1 ONE Stop: 11/04/24 13:01 Last Admin: 11/04/24 14:07 Dose: 1 tab Lactated Ringer's (Lactated Ringers) 1,000 mls @ 125 mls/hr IV .Q8H [facility] Stop: 12/04/24 17:14 Ceftriaxone Sodium/Dextrose (Rocephin/D5w 1gm Iv Premix) 1 gm in 50 mls @ 100 mls/hr IV QDAY CLAUDY Stop: 11/11/24 17:17 Metronidazole (Flagyl 500 Mg Iv) 500 mg in 100 mls @ 200 mls/hr IV Q8HR [facility] Stop: 11/11/24 17:18 Assessment & Plan Plan Patient is a 64 year old male with past medical history of alcohol/tobacco/polysubstance abuse, on chronic methadone, hypertension, PAD with chronic ulcers on bilateral lower extremity, COPD on 5 L oxygen at home, untreated hepatitis C who presents on 11/04 for severe lower abdominal pain and constipation. Admitted for SBO secondary to umbilical hernia. #SBO secondary to incarcerated umbilical hernia #Hx of unspecified abdominal surgery Presented with severe abdominal pain since yesterday. Last bowel movement yesterday but hasn't been able to pass gas since. Denies nausea, vomiting. Denies previous episodes. CT A/P findings as above - incarcerated bowel. Plan: ? NG tube placed ? N.p.o. ? IV Zosyn 3.375 every 6 hours ? Dilaudid 0.5 and 1 as needed ? 1 L LR as maintenance fluids ? Consulted Dr. Goldman, ruth recommendations: Plan for surgery tonight. #Chronic wounds on bilateral lower extremities Chronic wounds due to untreated PAD. Follows up with wound care specalist weekly and takes care of wounds daily at home. - Wound care consulted #Hypertension Takes medications at home but pending official med rec. Has not been taking meds or checking BP. - Restart home BP meds when no longer NPO - IV Lasix if SBP >180 #Hx polysubstance use #Hx tobacco use #Hx alcohol use Last drink was months ago. - Nicotine patch daily - Methadone 60 mg daily after no longer NPO - Dilaudid as above #Pumonlary nodules #Fat containing inguinal hernias #Cholelithiasis #13 mm posterior right lobe liver cyst #Osteopenia with disc narrowing L5-S1 Incidental findings on CT A/P. - CTM - Will likely need outpatient follow up Health Maintenance Disposition: med surg DVT prophylaxis: heparin held in anticipation for surgery, SCDs unfavorable due to chronic leg wounds GI prophylaxis: Protonix Diet: NPO CODE STATUS: Limited, no intubation Patient plan of care was discussed with the attending physician, Dr. Arias. Nikki Chester, PGY-1 Attending Provider Attestation/Addendum After examination of the patient and review of the clinical data I feel that this patient needs admission to the hospital for further treatment/evaluation. I have discussed and was present for the essential components of the history, physical examination, diagnosis, and treatment plan with the resident. I agree with the patient's care as documented by the resident and amended herein by me. Angelo Arias, DO. Although this document has been carefully reviewed, there may still be some phonetic and other typographical errors. These errors are purely grammatical due to imperfections in the software program and should not be construed in any way to compromise the substance of the patient's medical care during this visit. Patient seen and evaluated in the ED in short, 64-year-old male with a significant past medical history of polysubstance abuse to include alcohol and tobacco, chronically on methadone, PAD, HTN, chronic bilateral lower extremity ulcerations, COPD on 5 L home O2, hepatitis C which has been untreated presented for severe lower abdominal pain subsequently admitted for small bowel obstruction secondary to incarcerated umbilical hernia In the ED, vital signs stable, patient afebrile, significant labs include a hemoglobin of 17, patient was shown to be meth positive. CT abdomen pelvis significant for small bowel obstruction secondary to umbilical hernia as well as multiple pulmonary nodules, irregular liver contour with cyst, cholelithiasis and fat-containing inguinal hernias. Patient was given [place] and fluid bolus in the ED. General surgery was consulted Patient admitted to [facility], NG tube placed, patient will be started on Zosyn for any associated abdominal infection possibly from bowel necrosis, surgery was planned for this evening. Wound care also consulted for bilateral lower extremity wounds, we did have a discussion in regards to the patient's drug use and the necessity for cessation which she understood. Will monitor the patient closely while he is here
--- NOTE | 2024-11-04 18:21 | XR_ITS ---
Examination: AP chest single view Technique: Portable AP chest single view Date and time: November 04, 2024, 1841 hrs., Comparison April 25, 2023 Indications: Post orogastric tube placement Findings: Orogastric tube sidehole is just beyond the GE junction Normal heart size No pneumonia Old fracture right clavicle Impression: Advance the orogastric tube 4 cm
[2024-11-04] MEDS: PIPER/TAZO 3.375 GM PREMIX 3.375 GM/50 ML BAG IV (18:30)
[2024-11-04] MEDS: SODIUM CHLORIDE 0.9% 1000 ML 1,000 ML 100 ML IV (18:30)
--- NOTE | 2024-11-04 19:34 | PD.SURCONS ---
HPI Consult details Consult date: 11/04/24 Reason for consultation narrative: Small bowel obstruction from incarcerated umbilical hernia History of present illness: 65-year-old male with history of CVA (was taken Plavix in the past, has not been taking Plavix for past few months), COPD, hepatitis C, IVDA, tobacco and alcohol use has had chronic history of periumbilical hernia. Since earlier today he has been having worsening abdominal pain. He is noted to have an incarcerated umbilical hernia that he has not been able to reduce. CT scan revealed small bowel obstruction secondary to incarcerated umbilical hernia. An NG tube was placed. Review of Systems Constitutional Constitutional: Denies chills and Denies fever(s) Cardiovascular Cardiovascular: Denies chest pain Respiratory Respiratory: Denies cough Gastrointestinal Gastrointestinal: Reports abdominal pain, Reports nausea and Reports vomiting Hematologic/Lymphatic Hematologic/Lymphatic: Denies easy bleeding and Reports easy bruising Past Medical History Surgical History OTHER SURGICAL HX: Bilateral knee surgery, multiple I&D's, exploratory laparotomy possibly for perforated gastric ulcer (details are not known) Social History SMOKING STATUS: Current every day smoker SUBSTANCE USE: heroin ALCOHOL: Former Meds Home Medications and Allergies Home Medications ?Medication ?Instructions ?Recorded ?Confirmed ?Type fluticasone 250 mcg-salmeterol 50 1 inh inhalation QDAY 09/19/21 02/27/24 History mcg/dose blistr powdr for inhalation methadone 10 mg/5 mL oral solution 40 mg PO QDAY 07/31/22 12/18/22 History atorvastatin 80 mg tablet 80 mg PO HS 12/18/22 02/27/24 History furosemide 20 mg tablet 20 mg PO QDAY 12/18/22 02/27/24 History loratadine 10 mg tablet 10 mg PO QDAY 12/18/22 02/27/24 History acamprosate 333 mg tablet,delayed 333 mg PO QDAY 02/27/24 02/27/24 History release aspirin 81 mg tablet,delayed 81 mg PO DAILY 02/27/24 02/27/24 History release buspirone 5 mg tablet 5 mg PO BID 02/27/24 02/27/24 History buspirone 5 mg tablet 5 mg PO BID 02/27/24 02/27/24 History clopidogrel 75 mg tablet 75 mg PO DAILY 02/27/24 02/27/24 History pantoprazole 40 mg tablet,delayed 40 mg PO QDAY 02/27/24 02/27/24 History release thiamine HCl (vitamin B1) 100 mg 100 mg PO QDAY 02/27/24 02/27/24 History tablet Allergies Allergy/AdvReac Type Severity Reaction Status Date / Time No Known Allergies Allergy Verified 11/04/24 12:25 Exam Vital Signs Temp Pulse Resp BP Pulse Ox O2 Del Method 98.0 F 70 18 148/97 H 97 Room Air 11/04/24 18:08 11/04/24 18:08 11/04/24 18:08 11/04/24 18:08 11/04/24 18:08 11/04/24 18:08 Constitutional Constitutional: no acute distress Routine Abdominal Exam Comments: Abdomen is soft and distended. He has laparotomy scar from subxiphoid to above the umbilicus. He has some erythema around the umbilicus with very tender and incarcerated hernia, unable to reduce the hernia Results Results: Laboratory Laboratory results: results reviewed Results: Imaging CT scan - abdomen: report reviewed and image reviewed CT scan - pelvis: report reviewed and image reviewed Assessment & Plan Problem List (1) SBO (small bowel obstruction): Status: Acute (2) Umbilical hernia with obstruction, without gangrene: Status: Acute Plan Patient will be taken to the operating room for exploratory laparotomy, possible bowel resection and repair of hernia. Risks of the procedure include but not limited to infection, bleeding, injury to bowel, surrounding vascular structures, chronic and nonhealing wound, recurrence of hernia, abdominal sepsis and or abdominal abscess, need for further procedure and or operation, pneumonia, blood clot, heart attack, stroke and discussed with the patient. Benefits and alternatives explained to him, all his questions answered, he agreed and consented to proceed with the operation.
--- NOTE | 2024-11-04 19:44 | PC.NURSE ---
REPORT CALLED TO MILADIS ORTA IN SURGERY FOR PATIENT. PATIENT NG TUBE ADVANCED PER CHEST XRAY READING. PATIENT GOING TO SURGERY. NO FURTHER QUESTIONS
--- NOTE | 2024-11-04 21:27 | PD.SUROPNT ---
Date of Procedure 11/04/24 Pre Op Diagnosis Small bowel obstruction Incarcerated umbilical hernia Post Op Diagnosis Acute focal segmental ischemic infarction small intestine Complete small bowel obstruction from adhesive band Procedure Exploratory laparotomy, lysis of adhesions, partial small bowel resection Findings Approximately 2 inches of proximal ileum strangulated within the umbilical hernia causing focal segmental ischemic infarction. Complete small bowel obstruction from an adhesive band Anesthesia GETA and local Pathology / specimen Other (Partial small bowel) Estimated Blood Loss 25 Condition Stable Disposition PACU Surgeon Carson Goldman MD Surgical Staff Operation Date: 11/04/24 20:15 Case Staff Anesthesiologist: Lamont Martinez RNmedieval english literature professor: Holly Hyman
--- NOTE | 2024-11-04 21:40 | SUR.PHASEI ---
Arrived to recovery bay 1 via bed. Report received from Dhruv REDDING and Dr. Martinez. Resting with eyes closed. No s/o distress or discomfort. NG tube intact taped at 60cm clarke in left nare. Doty catheter intact, draining bg color urine. Dressing to abd C/D/I with abdominal binder over it.
[2024-11-04] MEDS: KCL 20 mEq/L in D5-1/2NS 20 MEQ/1,000 ML BAG 70 MEQ IV (21:56)
[2024-11-04] MEDS: HYDROmorphone 1 MG/ML PCA SYRINGE 30ML PCA (22:02)
--- NOTE | 2024-11-04 22:30 | SUR.PHASEI ---
Transferred to room 357 via bed. Dressing to abdomen C/D/I with abdominal binder over it. Doty catheter intact, NG tube intact. No s/o distress. States some mild discomfort but PAPER INSPECTOR is helping. Mel REDDING at bedside. Call light within reach.
--- NOTE | 2024-11-04 23:13 | PC.NURSE ---
Unable to complete med reconciliation d/t unavailability of med list from patient. Patient's to bring prescription bottles tomorrow (per ).
[2024-11-04] MEDS: ALBUMIN HUMAN-KJDA 25% IVPB 25 GM/100 ML BTL IV (23:40)
[2024-11-05] VITALS (12 sets, daily range): BP systolic 119–152; BP diastolic 74–93; PULSE 73–96; RESP 16–22; TEMP 35.7–36.3; O2SAT 92–95
[2024-11-05] MEDS: CEFOXITIN 2 GM in SODIUM CHLORIDE 0.9% (Popper) 50 ML IV ×3 (05:23→17:20)
[2024-11-05 05:38] LABS: Basophils # (Auto) 0.0 Thou/mm3 (0.0-0.2); Basophils % (Auto) 0 % (0-2.5); Eosinophils # (Auto) 0.0 Thou/mm3 (0.0-0.5); Eosinophils % (Auto) 0 % (0-10); Hematocrit 39.6 % (41.0-53.0); Hemoglobin 13.5 g/dL (13.5-16.0); Immature Granulocytes Auto 0.05 Thou/mm3 (0.00-0.00); Lymphocytes # (Auto) 0.5 Thou/mm3 (1.0-4.8); Lymphocytes % (Auto) 4 % (10-50); Mean Corpuscular HGB Conc 34.1 g/dl (31.0-37.0); Mean Corpuscular Hemoglobin 30.1 pg (25.0-35.0); Mean Corpuscular Volume 88 fL (80-100); Monocytes # (Auto) 0.7 Thou/mm3 (0.0-0.8); Monocytes % (Auto) 6 % (0-12); Neutrophils # (Auto) 10.7 Thou/mm3 (1.8-7.7); Neutrophils % (Auto) 89 % (37-80); Nucleated Red Blood Cell # 0.00 Thou/mm3 (0.00-0.00); Nucleated Red Blood Cell % 0 /100 WBC (0); Platelet Count 158 Thou/mm3 (140-440); RDW Standard Deviation 44.8 fL (35.1-43.9); Red Blood Count 4.49 Miln/mm3 (4.50-5.90); White Blood Count 12.0 Thou/mm3 (3.8-10.6)
[2024-11-05 06:02] LABS: Anion Gap 8 (7-16); BUN/Creatinine Ratio 20 Ratio (12-20); Blood Urea Nitrogen 12 mg/dL (9-23); Calcium 8.6 mg/dL (8.3-10.6); Carbon Dioxide 25.8 mMol/L (20.0-31.0); Cardiac Risk Estimate 2.0 RATIO (4.0-6.7); Chloride 103 mMol/L (98-107); Cholesterol 82 mg/dL (132-200); Creatinine (Component) 0.6 mg/dL (0.6-1.3); Estimated Creatinine Clearance 131.8 mL/min (>60); Glucose 148 mg/dL (74-106); HDL Cholesterol 42 mg/dL (40-60); LDL Cholesterol,Calculated 33 mg/dL (0-130); Magnesium 2.5 mg/dL (1.6-2.6); Osmolality,Calculated 276 (275-295); Potassium 4.1 mMol/L (3.4-5.1); Sodium 137 mMol/L (136-145); Thyroid Stimulating Hormone 0.65 uIU/mL (0.55-4.78); Triglycerides 36 mg/dL (30-150); eGFR > 60 See Note
[2024-11-05 06:11] LABS: Glucose Estimated Average 103 mg/dL (80-131); Hemoglobin A1C 5.2 % Hgb (4.8-6.0)
--- NOTE | 2024-11-05 08:06 | PC.NURSE ---
Dr. Goldman in to see pt. States to clamp NG tube and new orders placed.
--- NOTE | 2024-11-05 08:13 | ESPR_ITS ---
Documentation for date of: 11/05/24 Subjective Subjective Narrative: Patient is seen and examined. He is resting comfortably, his pain is well- controlled Exam Vital Signs Temp Pulse Resp BP Pulse Ox O2 Del Method O2 Flow Rate 97.0 F 90 18 127/84 93 L Nasal Cannula 3 11/05/24 04:00 11/05/24 04:00 11/05/24 04:10 11/05/24 04:00 11/05/24 04:00 11/05/24 00:00 11/05/24 00:40 Constitutional Constitutional: no acute distress Routine Abdominal Exam Comments: Abdomen is soft and mildly distended. Incision with dressings clean, dry and intact Assessment & Plan Assessment Additional comments: Postop day #1 status post exploratory laparotomy, lysis of adhesions, partial small bowel resection with anastomosis Plan DC Doty catheter. Clamp NG tube. Patient is advised to increase ambulation and start using incentive spirometer PROCEDURES: Procedures Exploratory laparotomy, lysis of adhesions, partial small bowel resection
[2024-11-05] MEDS: ALBUMIN HUMAN-KJDA 25% IVPB 25 GM/100 ML BTL IV ×3 (09:01→23:23)
[2024-11-05] MEDS: NICOTINE PATCH 7 MG/24 HR PATCH.TD24 TOP (09:07)
--- NOTE | 2024-11-05 10:59 | PC.NURSE ---
Attempted administration of suppository x3, patient unable to tolerate repositioning.
[2024-11-05] MEDS: KCL 20 mEq/L in D5-1/2NS 20 MEQ/1,000 ML BAG 30 MEQ IV (11:58)
--- NOTE | 2024-11-05 13:34 | PC.SS ---
SS met with patient who is alert/oriented. Patient resides with his son. Patient was admitted for sbo. Patient was positive tox for meth. Patient states he's on methadone and follows at [facility] methadone clinic 4 times monthly. Patient verified he has 02 @ 5L at home, nebulizer, CPAP machine, FWW and wheelchair at home. Patient states he applied for IHSS and is still pending. Patient was open to [facility] for wound care. Patient also receives tailored meals through his insurance. Patient states he also follows up with o/p wound clinic. Patient takes [facility] for transport. Patient d/c plan remains to return home. Alt medical decision maker: ,
--- NOTE | 2024-11-05 13:55 | ESPR_ITS ---
<Statement entered by Anay Jansen MD - 11/14/24 08:16> I reviewed above note and agree with findings and plans. I have also personally examined the patient with medicine team and went over assessment and plan with medical team including biology intern and resident physician. <Statement entered by Earnest Perez MD - 11/05/24 15:38> Patient seen and assessed in hospital bed reporting persistent mild abdominal discomfort. Patient is postop day 1 from exploratory laparotomy, lysis of adhesions and partial small bowel resection. Patient continues to be on NG tube which is clamped at this point, awaiting general surgery recommendations regarding advancing diet. At this time, will encourage ambulation and incentive spirometry use. Patient also has pulmonary nodules which will need to be followed up once stable to be discharged. Expect discharge within the next 24 to 48 hours. I have personally seen and examined the patient. I agree with the resident's assessment and plan as documented below. Earnest Perez DO PGY-2 Internal Medicine - [facility] Documentation for date of: 11/05/24 Subjective Subjective Interval history: Patient seen at bedside. Postop day 1. Patient doing well. Patient outputted 700 mL of urine overnight. No bowel movements yet and not yet passing gas. Patient encouraged to use incentive spirometry and ambulate with the help of physical therapy. Patient on 3 L oxygen via nasal prong. Using POINTING MACHINE OPERATOR. Exam Vital Signs Temp Pulse Resp BP Pulse Ox O2 Del Method O2 Flow Rate 97.4 F 79 21 H 119/74 95 Nasal Cannula 3 11/05/24 08:00 11/05/24 09:06 11/05/24 12:00 11/05/24 08:00 11/05/24 09:06 11/05/24 00:00 11/05/24 09:06 Narrative Exam General: Awake and in no acute distress. Conversational and non-toxic appearing. HEENT: Normocephalic, atraumatic, mucous membranes moist. Heart: Regular rate and rhythm, normal S1 and S2, no murmurs. Lungs: Clear to auscultation with no wheezing or crackles. Abdomen: Soft, nondistended, incision with dressings clean, dry and intact. Decreased bowel sounds. No guarding or rebound tenderness. Neurologic: Alert and oriented x3, no gross neurological deficit, and patient able to move all 4 extremities. Extremities: Chronic wounds on lower bilateral extremities. Dressings clean and intact. Skin: No rash or ecchymoses. Objective Labs 11/05/24 05:14 11/05/24 05:14 Labs: Laboratory Results - last 24 hr 11/04/24 11/04/24 11/05/24 13:31 13:36 05:14 WBC 9.6 12.0 H RBC 5.67 4.49 L Hgb 16.9 H 13.5 D Hct 49.6 39.6 L MCV 88 88 MCH 29.8 30.1 MCHC 34.1 34.1 RDW Std Deviation 43.8 44.8 H Plt Count 200 158 D Neut % (Auto) 86 H 89 H Lymph % (Auto) 9 L 4 L Green % (Auto) 5 6 Eos % (Auto) 0 0 Baso % (Auto) 0 0 Neut # (Auto) 8.2 H 10.7 H Lymph # (Auto) 0.9 L 0.5 L Green # (Auto) 0.4 0.7 Eos # (Auto) 0.0 0.0 Baso # (Auto) 0.0 0.0 Immature Gran # (Auto) 0.02 H 0.05 H Absolute Nucleated RBC 0.00 0.00 Immature Gran % 0 0 Nucleated RBC % 0 0 PT 12.8 H INR 1.2 APTT 33.1 Sodium 134 L 137 Potassium 3.7 4.1 Chloride 98 103 Carbon Dioxide 27.1 25.8 Anion Gap 9 8 BUN 10 12 Creatinine 0.6 0.6 Estim Creat Clear Calc 131.8 131.8 eGFR > 60 > 60 BUN/Creatinine Ratio 17 20 Glucose [address] Glu mg/dL 103 Hemoglobin A1c 5.2 Calculated Osmolality 270 L 276 Calcium 9.4 8.6 Corrected Calcium 9.6 Magnesium 2.5 Total Bilirubin 1.2 AST 43 H ALT 28 Alkaline Phosphatase 226 H Total Protein 9.9 H Albumin 3.8 Globulin 6.1 H Albumin/Globulin Ratio 0.6 L Triglycerides 36 Cholesterol 82 L LDL Cholesterol, Calc 33 HDL Cholesterol 42 Cholesterol/HDL Ratio 2.0 L Lipase 25 TSH 0.65 Ur Collection Type Clean Catch Urine Color Yellow Urine Clarity Clear Urine pH 6.5 Ur Specific Tama 1.030 Urine Protein 1+ A Urine Glucose (UA) Negative Urine Ketones Trace Urine Blood Trace Urine Nitrite Negative Urine Bilirubin Negative Urine Urobilinogen (Auto) 3.0 Ur Leukocyte Esterase Negative Urine RBC 8 H Urine WBC 3 Ur Squamous Epith Cells 1 Urine Bacteria None Urine Opiates Screen Negative Urine Fentanyl Screen Negative Ur Barbiturates Screen Negative U Amphetamin/Meth Scrn Positive A U Benzodiazepines Scrn Negative U Cocaine Metab Screen Negative U Marijuana (THC) Screen Negative Quality Measures Quality Measures none Assessment & Plan Assessment Current Active Medications: Generic Name Dose Route Start Last Admin Trade Name Freq PRN Reason Stop Dose Admin Hydromorphone HCl 0 mg 11/04/24 21:45 11/04/24 22:02 Hydromorphone 1 Mg/Ml Psych Nurse Syringe 30ml POINTING MACHINE OPERATOR 11/09/24 21:44 30 mg UD CLAUDY Administration Protocol Cefoxitin Sodium 2 gm/ Sodium 50 mls @ 100 mls/hr 11/05/24 06:00 11/05/24 11:59 Chloride IV 11/12/24 05:59 100 mls/hr Q6HR CLAUDY Administration Albumin Human 25 gm in 100 mls @ 100 mls/hr 11/04/24 23:08 11/05/24 09:01 Albuminex 25% Ivpb IV 11/06/24 23:07 100 mls/hr Q8H CLAUDY Administration Potassium Chloride/Dextrose/Sod Cl 20 meq in 1,000 mls @ 30 mls/hr 11/05/24 07:50 11/05/24 11:58 Kcl 20 Meq/L In D5-1/2ns IV 12/05/24 07:48 30 mls/hr .Q24H CLAUDY Administration Nicotine 7 mg 11/05/24 09:00 11/05/24 09:07 Nicotine Patch 7 Mg/24 Hr Patch.Td24 TOP 12/05/24 08:59 7 mg QDAY CLAUDY Administration Ondansetron HCl 4 mg 11/04/24 23:08 Ondansetron Inj 2 Mg/Ml Inj 2 Ml IVP 12/04/24 23:07 Q6HR PRN NAUSEA OR VOMITING Protocol Plan Assessment: 64 year old male with PHx of alcohol/tobacco/polysubstance abuse, on chronic methadone, HTN, PAD with chronic ulcers on bilateral lower extremity, COPD on 5 L oxygen at home, untreated hepatitis C who presents on 11/04 for severe lower abdominal pain and constipation. Admitted for SBO secondary to incarcerated umbilical hernia. #SBO 2/2 to incarcerated umbilical hernia Postop day #1 Status post exploratory laparotomy, lysis of adhesions, partial small bowel resection with anastomosis Last bowel movement 2 days ago but hasn't been able to pass gas since Plan: ? NG tube clamped ? N.p.o. ? Cont'd IV Zosyn 3.375 every 6 hours ? POINTING MACHINE OPERATOR #Chronic wounds on bilateral lower extremities Chronic wounds due to untreated PAD. Follows up with wound care specalist weekly and takes care of wounds daily at home. - Wound care consulted #Hx polysubstance use #Hx tobacco use #Hx alcohol use Last drink was months ago. - Nicotine patch daily - Methadone 60 mg daily after no longer NPO - Dilaudid as above #Pumonlary nodules #Fat containing inguinal hernias #Cholelithiasis #13 mm posterior right lobe liver cyst #Osteopenia with disc narrowing L5-S1 Incidental findings on CT A/P. - CTM - Will likely need outpatient follow up Health Maintenance Disposition: med surg DVT prophylaxis: SCD GI prophylaxis: Protonix Diet: NPO, awaiting general surgery recommendations regarding advancing diet CODE STATUS: Limited, no intubation Case discussed with my attending Dr. Jansen, and senior resident, Dr. Chris Ren MD PGY-1
--- NOTE | 2024-11-05 21:20 | PC.NURSE ---
called Dr. Espino regarding patient c/o 11/14 pain in his abdomen, per patient it's a pain attack . When he has this he feels like he can't breath and has to calm himself down. Per patient, it is too painful for him to move at all and refuse to turn side to side or move in bed due to anxious thoughts about having pain when moving. Patient feels like he is not getting the medication via DIGITAL FORENSIC EXAMINER but explained to patient how DIGITAL FORENSIC EXAMINER works. Additional pain medication ordered. Charge nurse and doctor notified patient refusing to be turned. Patient educated on importance of early ambulation post surgery, importance of turning at least every 2 hours in bed to prevent pressure ulcers. Patient states understanding, says he'll move once his pain goes down.
[2024-11-05] MEDS: HYDROmorphone INJ 2 MG/ML VIAL 0.5 MG IVP (21:27)
[2024-11-06] VITALS (11 sets, daily range): BP systolic 121–158; BP diastolic 77–98; PULSE 79–98; RESP 15–26; TEMP 36.1–37.3; O2SAT 93–100; BMI 26.2
[2024-11-06] MEDS: HYDROmorphone 1 MG/ML PCA SYRINGE 30ML PCA (00:39)
[2024-11-06] MEDS: CEFOXITIN 2 GM in SODIUM CHLORIDE 0.9% (Popper) 50 ML IV ×5 (00:50→23:21)
[2024-11-06 05:28] LABS: Basophils # (Auto) 0.0 Thou/mm3 (0.0-0.2); Basophils % (Auto) 0 % (0-2.5); Eosinophils # (Auto) 0.0 Thou/mm3 (0.0-0.5); Eosinophils % (Auto) 0 % (0-10); Hematocrit 42.1 % (41.0-53.0); Hemoglobin 14.2 g/dL (13.5-16.0); Immature Granulocytes Auto 0.03 Thou/mm3 (0.00-0.00); Lymphocytes # (Auto) 1.6 Thou/mm3 (1.0-4.8); Lymphocytes % (Auto) 17 % (10-50); Mean Corpuscular HGB Conc 33.7 g/dl (31.0-37.0); Mean Corpuscular Hemoglobin 30.9 pg (25.0-35.0); Mean Corpuscular Volume 92 fL (80-100); Monocytes # (Auto) 1.1 Thou/mm3 (0.0-0.8); Monocytes % (Auto) 11 % (0-12); Neutrophils # (Auto) 6.7 Thou/mm3 (1.8-7.7); Neutrophils % (Auto) 71 % (37-80); Nucleated Red Blood Cell # 0.00 Thou/mm3 (0.00-0.00); Nucleated Red Blood Cell % 0 /100 WBC (0); Platelet Count 147 Thou/mm3 (140-440); RDW Standard Deviation 47.8 fL (35.1-43.9); Red Blood Count 4.59 Miln/mm3 (4.50-5.90); White Blood Count 9.5 Thou/mm3 (3.8-10.6)
[2024-11-06 05:46] LABS: Anion Gap 10 (7-16); BUN/Creatinine Ratio 20 Ratio (12-20); Blood Urea Nitrogen 10 mg/dL (9-23); Calcium 9.2 mg/dL (8.3-10.6); Carbon Dioxide 23.8 mMol/L (20.0-31.0); Chloride 102 mMol/L (98-107); Creatinine (Component) 0.5 mg/dL (0.6-1.3); Estimated Creatinine Clearance 158.2 mL/min (>60); Glucose 93 mg/dL (74-106); Osmolality,Calculated 270 (275-295); Potassium 4.3 mMol/L (3.4-5.1); Sodium 136 mMol/L (136-145); eGFR > 60 See Note
[2024-11-06] MEDS: ALBUMIN HUMAN-KJDA 25% IVPB 25 GM/100 ML BTL IV (07:31)
[2024-11-06] MEDS: NICOTINE PATCH 7 MG/24 HR PATCH.TD24 TOP (08:00)
[2024-11-06] MEDS: RINGERS LACTATED 1000 ML 1,000 ML 75 ML IV (08:40)
--- NOTE | 2024-11-06 09:54 | ESPR_ITS ---
<Statement entered by Anay Jansen MD - 11/14/24 08:17> I reviewed above note and agree with findings and plans. I have also personally examined the patient with medicine team and went over assessment and plan with medical team including healthcare administration intern and resident physician. <Statement entered by Earnest Perez MD - 11/06/24 16:05> Patient seen and assessed in hospital bed status post NG tube removal. Patient denies having any concerning symptoms other than mild persistent abdominal pain which is expected. Patient is postop day 2 from exploratory laparotomy and bowel resection due to SBO. He is progressing well and he has been started on clear liquid diet with plan on advancing as tolerated. Patient's pain is well- controlled with SET UP OPERATOR pump; moreover, we will follow-up on general surgery recommendations but expect discharge within the next 24 to 48 hours. I have personally seen and examined the patient. I agree with the resident's assessment and plan as documented below. Earnest Perez DO PGY-2 Internal Medicine - [facility] Documentation for date of: 11/06/24 Subjective Subjective Interval history: Patient seen at bedside. Postop day 2. Patient doing well. Patient outputted 1200 mL of urine overnight. No bowel movements yet and not yet passing gas. Patient encouraged to use incentive spirometry and ambulate with the help of physical therapy. Patient on 2 L oxygen via nasal prong. Using SET UP OPERATOR. Exam Vital Signs Temp Pulse Resp BP Pulse Ox O2 Del Method O2 Flow Rate 97.4 F 84 18 121/84 93 L Nasal Cannula 2 11/06/24 07:59 11/06/24 07:59 11/06/24 07:59 11/06/24 07:59 11/06/24 07:59 11/06/24 07:59 11/06/24 06:37 Narrative Exam General: Awake and in no acute distress. Conversational and non-toxic appearing. HEENT: Normocephalic, atraumatic, mucous membranes moist. Heart: Regular rate and rhythm, normal S1 and S2, no murmurs. Lungs: Clear to auscultation with no wheezing or crackles. Abdomen: Soft, nondistended, incision with dressings clean, dry and intact. Decreased bowel sounds. No guarding or rebound tenderness. Neurologic: Alert and oriented x3, no gross neurological deficit, and patient able to move all 4 extremities. Extremities: Chronic wounds on lower bilateral extremities. Dressings clean and intact. Skin: No rash or ecchymoses. Objective Labs 11/07/24 04:51 11/07/24 04:51 Labs: Laboratory Results - last 24 hr 11/06/24 04:10 WBC 9.5 RBC 4.59 Hgb 14.2 Hct 42.1 MCV 92 MCH 30.9 MCHC 33.7 RDW Std Deviation 47.8 H Plt Count 147 Neut % (Auto) 71 Lymph % (Auto) 17 [place] % (Auto) 11 Eos % (Auto) 0 Baso % (Auto) 0 Neut # (Auto) 6.7 Lymph # (Auto) 1.6 [place] # (Auto) 1.1 H Eos # (Auto) 0.0 Baso # (Auto) 0.0 Immature Gran # (Auto) 0.03 H Absolute Nucleated RBC 0.00 Immature Gran % 0 Nucleated RBC % 0 Sodium 136 Potassium 4.3 Chloride 102 Carbon Dioxide 23.8 Anion Gap 10 BUN 10 Creatinine 0.5 L Estim Creat Clear Calc 158.2 eGFR > 60 BUN/Creatinine Ratio 20 Glucose 93 D Calculated Osmolality 270 L Calcium 9.2 Quality Measures Quality Measures none Assessment & Plan Assessment Current Active Medications: Generic Name Dose Route Start Last Admin Trade Name Freq PRN Reason Stop Dose Admin Hydromorphone HCl 0 mg 11/04/24 21:45 11/06/24 00:39 Hydromorphone 1 Mg/Ml Press Maintainer Syringe 30ml SET UP OPERATOR 11/09/24 21:44 30 mg UD CLAUDY Administration Protocol Cefoxitin Sodium 2 gm/ Sodium 50 mls @ 100 mls/hr 11/05/24 06:00 11/06/24 05:51 Chloride IV 11/12/24 05:59 100 mls/hr Q6HR CLAUDY Administration Lactated Ringer's 1,000 mls @ 75 mls/hr 11/06/24 08:02 11/06/24 08:40 Lactated Ringers IV 11/06/24 21:21 75 mls/hr .[id number] ONE Administration Nicotine 7 mg 11/05/24 09:00 11/06/24 08:00 Nicotine Patch 7 Mg/24 Hr Patch.Td24 TOP 12/05/24 08:59 7 mg QDAY CLAUDY Administration Ondansetron HCl 4 mg 09/30/25 23:08 Ondansetron Inj 2 Mg/Ml Inj 2 Ml IVP 12/04/24 23:07 Q6HR PRN NAUSEA OR VOMITING Protocol Plan Assessment: 64 year old male with PHx of alcohol/tobacco/polysubstance abuse, on chronic methadone, HTN, PAD with chronic ulcers on bilateral lower extremity, COPD on 5 L oxygen at home, untreated hepatitis C who presents on 11/04 for severe lower abdominal pain and constipation. Admitted for SBO secondary to incarcerated umbilical hernia. #SBO 2/2 to incarcerated umbilical hernia Postop day #2 Status post exploratory laparotomy, lysis of adhesions, partial small bowel resection with anastomosis Last bowel movement 2 days ago but hasn't been able to pass gas since Plan: - 1L LR given ? NG removed per surgery ? On CLD per surgery ? Switched to Cefoxitin (11/06-11/12) from Zosyn ? SET UP OPERATOR #Hx of previous untreated Hep C Patient never underwent treatment Plan - No inpatient intervention - F/U outpatient #Hx of Elevated Right Ventricular Systolic Pressure Last ECHO 02/27/24 showed stage 1 dystolic function. Est EF 60-65%. Est RVSP 66mmg Suggestive of high pressure of pulm artery Plan - F/U w/ cardio outpatient - Caution w/ fluids #Chronic wounds on bilateral lower extremities Chronic wounds due to untreated PAD. Follows up with wound care specalist weekly and takes care of wounds daily at home. - Wound care consulted #Old fracture of R clavicle Plan - No intervention at this time, monitor #Hx polysubstance use #Hx tobacco use #Hx alcohol use Last drink was months ago. - Nicotine patch daily - Methadone 60 mg daily after no longer NPO - Dilaudid as above #Pumonlary nodules #Fat containing inguinal hernias #Cholelithiasis #13 mm posterior right lobe liver cyst #Osteopenia with disc narrowing L5-S1 Incidental findings on CT A/P. - CTM - Will likely need outpatient follow up Health Maintenance Disposition: med surg DVT prophylaxis: SCD GI prophylaxis: Protonix Diet: CLD CODE STATUS: Limited, no intubation Case discussed with my attending Dr. Jansen, and senior resident, Dr. Chris Ren MD PGY-1
--- NOTE | 2024-11-06 15:30 | ESPR_ITS ---
Documentation for date of: 11/06/24 Subjective Subjective Narrative: Pt is seen and examined. He has incisional pain controlled with OIL PROSPECTING OBSERVER. He denies nausea or vomiting. Exam Vital Signs Temp Pulse Resp BP Pulse Ox O2 Del Method O2 Flow Rate 97 F 82 20 134/84 H 95 Nasal Cannula 2 11/06/24 11:36 11/06/24 11:36 11/06/24 12:00 11/06/24 11:36 11/06/24 11:36 11/06/24 11:36 11/06/24 11:36 Constitutional Constitutional: no acute distress Routine Abdominal Exam Comments: abdomen is soft and minimally distended. Bowel sounds present. Incision with dressing clean, dry and intact. Assessment & Plan Assessment Additional comments: Postop day #2 status post exploratory laparotomy, lysis of adhesions, partial small bowel resection with anastomosis Plan DC NGT and start clear liquids. PROCEDURES: Procedures Exploratory laparotomy, lysis of adhesions, partial small bowel resection
[2024-11-07] VITALS (10 sets, daily range): BP systolic 111–163; BP diastolic 74–90; PULSE 82–94; RESP 16–95; TEMP 36.2–37.2; O2SAT 91–96; BMI 15.0
[2024-11-07] MEDS: CEFOXITIN 2 GM in SODIUM CHLORIDE 0.9% (Popper) 50 ML IV ×4 (05:09→23:47)
[2024-11-07 05:48] LABS: Basophils # (Auto) 0.0 Thou/mm3 (0.0-0.2); Basophils % (Auto) 1 % (0-2.5); Eosinophils # (Auto) 0.1 Thou/mm3 (0.0-0.5); Eosinophils % (Auto) 1 % (0-10); Hematocrit 40.6 % (41.0-53.0); Hemoglobin 14.0 g/dL (13.5-16.0); Immature Granulocytes Auto 0.04 Thou/mm3 (0.00-0.00); Lymphocytes # (Auto) 1.5 Thou/mm3 (1.0-4.8); Lymphocytes % (Auto) 20 % (10-50); Mean Corpuscular HGB Conc 34.5 g/dl (31.0-37.0); Mean Corpuscular Hemoglobin 30.4 pg (25.0-35.0); Mean Corpuscular Volume 88 fL (80-100); Monocytes # (Auto) 1.0 Thou/mm3 (0.0-0.8); Monocytes % (Auto) 14 % (0-12); Neutrophils # (Auto) 4.6 Thou/mm3 (1.8-7.7); Neutrophils % (Auto) 63 % (37-80); Nucleated Red Blood Cell # 0.00 Thou/mm3 (0.00-0.00); Nucleated Red Blood Cell % 0 /100 WBC (0); Platelet Count 131 Thou/mm3 (140-440); RDW Standard Deviation 44.7 fL (35.1-43.9); Red Blood Count 4.60 Miln/mm3 (4.50-5.90); White Blood Count 7.2 Thou/mm3 (3.8-10.6)
[2024-11-07 05:56] LABS: Anion Gap 8 (7-16); BUN/Creatinine Ratio 20 Ratio (12-20); Blood Urea Nitrogen 12 mg/dL (9-23); Calcium 9.0 mg/dL (8.3-10.6); Carbon Dioxide 26.0 mMol/L (20.0-31.0); Chloride 101 mMol/L (98-107); Creatinine (Component) 0.6 mg/dL (0.6-1.3); Estimated Creatinine Clearance 131.8 mL/min (>60); Glucose 91 mg/dL (74-106); Osmolality,Calculated 269 (275-295); Potassium 4.4 mMol/L (3.4-5.1); Sodium 135 mMol/L (136-145); eGFR > 60 See Note
[2024-11-07] MEDS: NICOTINE PATCH 7 MG/24 HR PATCH.TD24 TOP (08:53)
--- NOTE | 2024-11-07 09:19 | PC.NURSE ---
AIRCONDITIONING DRAFTING OFFICER was not clear, nurse clear this morning at @0909 with the volume that was infused 16.5 ml
--- NOTE | 2024-11-07 09:56 | PC.SS ---
Follow up note: Post OB Day 3 advance diet. Pt will return home upon dc.
[2024-11-07] MEDS: DOCUSATE SOD 100 MG CAPSULE PO ×2 (11:22→21:51)
[2024-11-07] MEDS: METHADONE HCL 10 MG TABLET 60 MG PO (11:22)
--- NOTE | 2024-11-07 12:49 | PD.SURPROG ---
Documentation for date of: 11/07/24 Subjective Subjective Narrative: Patient is seen and examined. His pain is improving. He denies nausea or vomiting. He has not had bowel movement yet Exam Vital Signs Temp Pulse Resp BP Pulse Ox O2 Del Method O2 Flow Rate 97.2 F 90 16 133/74 H 95 Nasal Cannula 2 11/07/24 08:00 11/07/24 12:04 11/07/24 12:04 11/07/24 08:00 11/07/24 12:04 11/07/24 08:00 11/07/24 12:04 Constitutional Constitutional: no acute distress Routine Abdominal Exam Comments: Abdomen is soft and very minimally distended. Incision is clean, dry and intact. Bowel sounds are present Assessment & Plan Assessment Additional comments: Postop day #3 status post exploratory laparotomy with lysis of adhesions and partial small bowel resection Plan Will keep patient on clear liquids until return of GI function. Patient is advised to increase ambulation PROCEDURES: Procedures Exploratory laparotomy, lysis of adhesions, partial small bowel resection
--- NOTE | 2024-11-07 13:23 | ESPR_ITS ---
<Statement entered by Anay Jansen MD - 11/14/24 08:18> I reviewed above note and agree with findings and plans. I have also personally examined the patient with medicine team and went over assessment and plan with medical team including physician internist and resident physician. <Statement entered by Earnest Perez MD - 11/07/24 15:38> Patient seen and examined in hospital bed reporting improvement in presenting symptoms. Discontinued patient's GERIATRICS PHYSICIAN pump and initiated home methadone dose. Patient will continue to be on clear liquid diet as per general surgery recommendations; however, will advance when given approval. Patient otherwise denies having any concerning symptoms. Will continue monitoring overnight and expect discharge within the next 24 to 48 hours. I have personally seen and examined the patient. I agree with the resident's assessment and plan as documented below. Earnest Perez DO PGY-2 Internal Medicine - [facility] Documentation for date of: 11/07/24 Subjective Subjective Interval history: Patient seen at bedside. Postop day 3. Patient doing well. Patient outputted 1700 mL of urine past 24 hr. No bowel movements yet and not yet passing gas. Patient encouraged to use incentive spirometry and ambulate with the help of physical therapy. Got out of bed yesterday and worked with PT. Patient on 2 L oxygen via nasal prong. Patient requesting home methadone dose for pain control. Exam Vital Signs Temp Pulse Resp BP Pulse Ox O2 Del Method O2 Flow Rate 98.9 F 90 16 134/88 H 95 Nasal Cannula 2 11/07/24 12:00 11/07/24 12:04 11/07/24 12:04 11/07/24 12:00 11/07/24 12:04 11/07/24 12:00 11/07/24 12:04 Narrative Exam General: Awake and in no acute distress. Conversational and non-toxic appearing. HEENT: Normocephalic, atraumatic, mucous membranes moist. Heart: Regular rate and rhythm, normal S1 and S2, no murmurs. Lungs: Clear to auscultation with no wheezing or crackles. Abdomen: Soft, nondistended, incision with dressings clean, dry and intact. Decreased bowel sounds. No guarding or rebound tenderness. Neurologic: Alert and oriented x3, no gross neurological deficit, and patient able to move all 4 extremities. Extremities: Chronic wounds on lower bilateral extremities. Dressings clean and intact. Skin: No rash or ecchymoses. Objective Labs 11/07/24 04:51 11/07/24 04:51 Labs: Laboratory Results - last 24 hr 11/07/24 04:51 WBC 7.2 RBC 4.60 Hgb 14.0 Hct 40.6 L MCV 88 MCH 30.4 MCHC 34.5 RDW Std Deviation 44.7 H Plt Count 131 L Neut % (Auto) 63 Lymph % (Auto) 20 [place] % (Auto) 14 H Eos % (Auto) 1 Baso % (Auto) 1 Neut # (Auto) 4.6 Lymph # (Auto) 1.5 [place] # (Auto) 1.0 H Eos # (Auto) 0.1 Baso # (Auto) 0.0 Immature Gran # (Auto) 0.04 H Absolute Nucleated RBC 0.00 Immature Gran % 1 H Nucleated RBC % 0 Sodium 135 L Potassium 4.4 Chloride 101 Carbon Dioxide 26.0 Anion Gap 8 BUN 12 Creatinine 0.6 Estim Creat Clear Calc 131.8 eGFR > 60 BUN/Creatinine Ratio 20 Glucose 91 Calculated Osmolality 269 L Calcium 9.0 Quality Measures Quality Measures none Assessment & Plan Assessment Current Active Medications: Generic Name Dose Route Start Last Admin Trade Name Freq PRN Reason Stop Dose Admin Docusate Sodium 100 mg 11/07/24 10:45 11/07/24 11:22 Docusate Sod 100 Mg Capsule PO 12/07/24 10:44 100 mg BID CLAUDY Administration Protocol Cefoxitin Sodium 2 gm/ Sodium 50 mls @ 100 mls/hr 11/05/24 06:00 11/07/24 11:22 Chloride IV 11/12/24 05:59 100 mls/hr Q6HR CLAUDY Administration Methadone HCl 60 mg 11/07/24 10:45 11/07/24 11:22 Methadone Hcl 10 Mg Tablet PO 12/07/24 10:44 60 mg QDAY CLAUDY Administration Morphine Sulfate 1 mg 11/07/24 10:35 Morphine Sulf Inj 4 Mg/Ml Vial IVP Q6HR PRN BREAKTHROUGH PAIN (SEVERE) Nicotine 7 mg 11/05/24 09:00 11/07/24 08:53 Nicotine Patch 7 Mg/24 Hr Patch.Td24 TOP 12/05/24 08:59 7 mg QDAY CLAUDY Administration Ondansetron HCl 4 mg 11/04/24 23:08 Ondansetron Inj 2 Mg/Ml Inj 2 Ml IVP 12/04/24 23:07 Q6HR PRN NAUSEA OR VOMITING Protocol Plan Assessment: 64 year old male with PHx of alcohol/tobacco/polysubstance abuse, on chronic methadone, HTN, PAD with chronic ulcers on bilateral lower extremity, COPD on 5 L oxygen at home, untreated hepatitis C who presents on 11/04 for severe lower abdominal pain and constipation. Admitted for SBO secondary to incarcerated umbilical hernia. #SBO 2/2 to incarcerated umbilical hernia Postop day #3 Status post exploratory laparotomy, lysis of adhesions, partial small bowel resection with anastomosis Last bowel movement before surgery Plan: ? Stopped GERIATRICS PHYSICIAN ? Restarted methadone 60 mg p.o. daily ? Morphine 1 mg every 6 hours as needed ? NG removed per surgery ? On CLD per surgery, to continue under GI function returns ? Continue cefoxitin (11/06-11/12), as per surgery #Hx of previous untreated Hep C Patient never underwent treatment Plan - No inpatient intervention - F/U outpatient #Hx of Elevated Right Ventricular Systolic Pressure Last ECHO 02/27/24 showed stage 1 dystolic function. Est EF 60-65%. Est RVSP 66mmg Suggestive of high pressure of pulm artery Plan - F/U w/ cardio outpatient - Caution w/ fluids #Chronic wounds on bilateral lower extremities Chronic wounds due to untreated PAD. Follows up with wound care specalist weekly and takes care of wounds daily at home. Plan - Wound care consulted #Old fracture of R clavicle Plan - No intervention at this time, monitor #Hx polysubstance use #Hx tobacco use #Hx alcohol use Last drink was months ago. Plan - Nicotine patch daily - Methadone 60 mg daily - Dilaudid as above #Pumonlary nodules #Fat containing inguinal hernias #Cholelithiasis #13 mm posterior right lobe liver cyst #Osteopenia with disc narrowing L5-S1 Incidental findings on CT A/P. Plan - CTM - Will likely need outpatient follow up Health Maintenance Disposition: med surg DVT prophylaxis: SCD GI prophylaxis: Protonix Diet: CLD CODE STATUS: Limited, no intubation Case discussed with my attending Dr. Jansen, and senior resident, Dr. Crhis Ren MD PGY-1
[2024-11-08] VITALS (8 sets, daily range): BP systolic 119–133; BP diastolic 73–84; PULSE 82–90; RESP 16–18; TEMP 36.3–36.6; O2SAT 92–96
[2024-11-08] MEDS: MORPHINE SULF INJ 4 MG/ML VIAL 1 MG IVP ×2 (00:29→12:23)
[2024-11-08] MEDS: CEFOXITIN 2 GM in SODIUM CHLORIDE 0.9% (Popper) 50 ML IV ×4 (05:30→23:01)
[2024-11-08 05:46] LABS: Basophils # (Auto) 0.1 Thou/mm3 (0.0-0.2); Basophils % (Auto) 1 % (0-2.5); Eosinophils # (Auto) 0.3 Thou/mm3 (0.0-0.5); Eosinophils % (Auto) 3 % (0-10); Hematocrit 44.3 % (41.0-53.0); Hemoglobin 15.4 g/dL (13.5-16.0); Immature Granulocytes Auto 0.05 Thou/mm3 (0.00-0.00); Lymphocytes # (Auto) 1.5 Thou/mm3 (1.0-4.8); Lymphocytes % (Auto) 18 % (10-50); Mean Corpuscular HGB Conc 34.8 g/dl (31.0-37.0); Mean Corpuscular Hemoglobin 30.5 pg (25.0-35.0); Mean Corpuscular Volume 88 fL (80-100); Monocytes # (Auto) 1.1 Thou/mm3 (0.0-0.8); Monocytes % (Auto) 14 % (0-12); Neutrophils # (Auto) 5.2 Thou/mm3 (1.8-7.7); Neutrophils % (Auto) 64 % (37-80); Nucleated Red Blood Cell # 0.00 Thou/mm3 (0.00-0.00); Nucleated Red Blood Cell % 0 /100 WBC (0); Platelet Count 153 Thou/mm3 (140-440); RDW Standard Deviation 44.3 fL (35.1-43.9); Red Blood Count 5.05 Miln/mm3 (4.50-5.90); White Blood Count 8.1 Thou/mm3 (3.8-10.6)
[2024-11-08 06:14] LABS: Anion Gap 10 (7-16); BUN/Creatinine Ratio 15 Ratio (12-20); Blood Urea Nitrogen 9 mg/dL (9-23); Calcium 9.2 mg/dL (8.3-10.6); Carbon Dioxide 26.3 mMol/L (20.0-31.0); Chloride 99 mMol/L (98-107); Creatinine (Component) 0.6 mg/dL (0.6-1.3); Estimated Creatinine Clearance 131.8 mL/min (>60); Glucose 116 mg/dL (74-106); Osmolality,Calculated 269 (275-295); Potassium 4.5 mMol/L (3.4-5.1); Sodium 135 mMol/L (136-145); eGFR > 60 See Note
--- NOTE | 2024-11-08 07:47 | ESPR_ITS ---
Documentation for date of: 11/08/24 Subjective Subjective Narrative: Patient is seen and examined. His pain is improving. He is tolerating liquid diet without nausea or vomiting. He has been passing flatus and had a small bowel movement Exam Vital Signs Temp Pulse Resp BP Pulse Ox O2 Del Method O2 Flow Rate 97.7 F 88 17 127/80 95 Nasal Cannula 2 11/08/24 07:32 11/08/24 07:32 11/08/24 07:32 11/08/24 07:32 11/08/24 07:32 11/08/24 07:32 11/08/24 07:32 Constitutional Constitutional: no acute distress Routine Abdominal Exam Comments: Abdomen is soft, very mildly distended. Incision is clean, dry and intact. Ramon wel sounds are active Assessment & Plan Assessment Additional comments: Postop day #4 status post exploratory laparotomy with lysis of adhesions and partial small bowel resection Plan Advance to soft diet. If tolerating diet well may discharge home tomorrow PROCEDURES: Procedures Exploratory laparotomy, lysis of adhesions, partial small bowel resection
[2024-11-08] MEDS: METHADONE HCL 10 MG TABLET 60 MG PO (09:22)
[2024-11-08] MEDS: NICOTINE PATCH 7 MG/24 HR PATCH.TD24 TOP (09:22)
[2024-11-08] MEDS: DOCUSATE SOD 100 MG CAPSULE PO ×2 (09:22→20:19)
--- NOTE | 2024-11-08 12:06 | ESPR_ITS ---
<Statement entered by Emily Ortega MD - 11/08/24 12:13> Patient was seen and examined at bedside. No acute overnight events. Labs within normal limits. Patient started yesterday clear liquid diet advance as tolerates. Currently patient is on soft diet, had 1 bowel movement after an enema. Plan is Advance diet as tolerates Wean off from morphine, continue methadone for pain management Encourage ambulation, continue working with PT Family expressed wishes to be discharged to rehabilitation center for physical therapy. Social workers were notified Will follow-up with surgery recommendations Anticipate discharge in next 24 to 48 hours. I personally saw and examined the patient and discussed the assessment and plan with the entire medicine team, including my attending Emily Bethea M.D. PGY-3 Disclaimer: Despite multiple revisions, due to the dictation software being used, the document bellow may not be free of grammatical errors including phonetic/typographic errors. However, this does not deter from our commitment to providing health care in the patient's best interest in mind. Documentation for date of: 11/08/24 Subjective Subjective Interval history: Patient seen at bedside. Postop day 3. Patient doing well. Patient outputted 1700 mL of urine past 24 hr. 1 BM yesterday and passing gas after enema administration. Patient encouraged to use incentive spirometry and ambulate with the help of physical therapy. Got out of bed yesterday and worked with PT. Patient on 2 L oxygen via nasal prong. Patient on home methadone dose for pain control. Exam Vital Signs Temp Pulse Resp BP Pulse Ox O2 Del Method O2 Flow Rate 97.7 F 86 18 127/80 96 Nasal Cannula 2 11/08/24 07:32 11/08/24 10:02 11/08/24 10:02 11/08/24 07:32 11/08/24 10:02 11/08/24 07:32 11/08/24 10:02 Narrative Exam General: Awake and in no acute distress. Conversational and non-toxic appearing. HEENT: Normocephalic, atraumatic, mucous membranes moist. Heart: Regular rate and rhythm, normal S1 and S2, no murmurs. Lungs: Clear to auscultation with no wheezing or crackles. Abdomen: Soft, nondistended, incision with dressings clean, dry and intact. Decreased bowel sounds. No guarding or rebound tenderness. Neurologic: Alert and oriented x3, no gross neurological deficit, and patient able to move all 4 extremities. Extremities: Chronic wounds on lower bilateral extremities. Dressings clean and intact. Skin: No rash or ecchymoses. Objective Labs 11/08/24 05:20 11/08/24 05:20 Labs: Laboratory Results - last 24 hr 11/08/24 05:20 WBC 8.1 RBC 5.05 Hgb 15.4 Hct 44.3 MCV 88 MCH 30.5 MCHC 34.8 RDW Std Deviation 44.3 H Plt Count 153 Neut % (Auto) 64 Lymph % (Auto) 18 [place] % (Auto) 14 H Eos % (Auto) 3 Baso % (Auto) 1 Neut # (Auto) 5.2 Lymph # (Auto) 1.5 [place] # (Auto) 1.1 H Eos # (Auto) 0.3 Baso # (Auto) 0.1 Immature Gran # (Auto) 0.05 H Absolute Nucleated RBC 0.00 Immature Gran % 1 H Nucleated RBC % 0 Sodium 135 L Potassium 4.5 Chloride 99 Carbon Dioxide 26.3 Anion Gap 10 BUN 9 Creatinine 0.6 Estim Creat Clear Calc 131.8 eGFR > 60 BUN/Creatinine Ratio 15 Glucose 116 H Calculated Osmolality 269 L Calcium 9.2 Quality Measures Quality Measures none Assessment & Plan Assessment Current Active Medications: Generic Name Dose Route Start Last Admin Trade Name Freq PRN Reason Stop Dose Admin Docusate Sodium 100 mg 11/07/24 10:45 11/08/24 09:22 Docusate Sod 100 Mg Capsule PO 12/07/24 10:44 100 mg BID CLAUDY Administration Protocol Cefoxitin Sodium 2 gm/ Sodium 50 mls @ 100 mls/hr 11/05/24 06:00 11/08/24 05:30 Chloride IV 11/12/24 05:59 100 mls/hr Q6HR CLAUDY Administration Methadone HCl 60 mg 11/07/24 10:45 11/08/24 09:22 Methadone Hcl 10 Mg Tablet PO 12/07/24 10:44 60 mg QDAY CLAUDY Administration Nicotine 7 mg 11/05/24 09:00 11/08/24 09:22 Nicotine Patch 7 Mg/24 Hr Patch.Td24 TOP 12/05/24 08:59 7 mg QDAY CLAUDY Administration Ondansetron HCl 4 mg 11/04/24 23:08 Ondansetron Inj 2 Mg/Ml Inj 2 Ml IVP 12/04/24 23:07 Q6HR PRN NAUSEA OR VOMITING Protocol Plan 64 year old male with PHx of alcohol/tobacco/polysubstance abuse, on chronic methadone, HTN, PAD with chronic ulcers on bilateral lower extremity, COPD on 5 L oxygen at home, untreated hepatitis C who presents on 11/04 for severe lower abdominal pain and constipation. Admitted for SBO secondary to incarcerated umbilical hernia. #SBO 2/2 to incarcerated umbilical hernia Postop day #4 Status post exploratory laparotomy, lysis of adhesions, partial small bowel resection with anastomosis Last bowel movement before surgery Plan: ? On methadone 60 mg p.o. daily ? Stopped morphine ? Advanced diet to soft per surgery, to continue under GI function returns ? Continue cefoxitin (11/06-11/12), as per surgery #Hx of previous untreated Hep C Patient never underwent treatment Plan - No inpatient intervention - F/U outpatient #Hx of Elevated Right Ventricular Systolic Pressure Last ECHO 02/27/24 showed stage 1 dystolic function. Est EF 60-65%. Est RVSP 66mmg Suggestive of high pressure of pulm artery Plan - F/U w/ cardio outpatient - Caution w/ fluids #Chronic wounds on bilateral lower extremities Chronic wounds due to untreated PAD. Follows up with wound care specalist weekly and takes care of wounds daily at home. Plan - Wound care consulted #Old fracture of R clavicle Plan - No intervention at this time, monitor #Hx polysubstance use #Hx tobacco use #Hx alcohol use Last drink was months ago. Plan - Nicotine patch daily - Methadone 60 mg daily - Dilaudid as above #Pumonlary nodules #Fat containing inguinal hernias #Cholelithiasis #13 mm posterior right lobe liver cyst #Osteopenia with disc narrowing L5-S1 Incidental findings on CT A/P. Plan - CTM - Will likely need outpatient follow up Health Maintenance Disposition: med surg DVT prophylaxis: SCD GI prophylaxis: Protonix Diet: soft, advance as per surgery CODE STATUS: Limited, no intubation Case discussed with my attending Dr. Lindsey, and senior resident, Dr. Jordan Ren MD PGY-1 Attending Provider Attestation/Addendum I attest that I was physically present for the evaluation, physical examination, lab and imaging review of the patient with the residents. I discussed the case with the residents and agree with the findings and plans of care as documented above. Patient seen and examined at bedside this morning. States that he has mild pain around his abdomen and required a dose of morphine this morning but denies any new complaints. He has been started on soft diet, tolerating well. Is been passing gas and had a small bowel movement as well. General surgery has been following closely, patient continues to be on cefoxitin, will continue to try to wean him off of analgesic and monitor if he can tolerate diet well. Delma Lindsey MD
[2024-11-09] VITALS (7 sets, daily range): BP systolic 108–138; BP diastolic 66–89; PULSE 75–88; RESP 16–19; TEMP 36.6–37.2; O2SAT 92–95
[2024-11-09] MEDS: CEFOXITIN 2 GM in SODIUM CHLORIDE 0.9% (Popper) 50 ML IV ×4 (05:02→23:02)
[2024-11-09 05:27] LABS: Basophils # (Auto) 0.1 Thou/mm3 (0.0-0.2); Basophils % (Auto) 1 % (0-2.5); Eosinophils # (Auto) 0.3 Thou/mm3 (0.0-0.5); Eosinophils % (Auto) 3 % (0-10); Hematocrit 43.8 % (41.0-53.0); Hemoglobin 14.8 g/dL (13.5-16.0); Immature Granulocytes Auto 0.06 Thou/mm3 (0.00-0.00); Lymphocytes # (Auto) 1.5 Thou/mm3 (1.0-4.8); Lymphocytes % (Auto) 19 % (10-50); Mean Corpuscular HGB Conc 33.8 g/dl (31.0-37.0); Mean Corpuscular Hemoglobin 30.1 pg (25.0-35.0); Mean Corpuscular Volume 89 fL (80-100); Monocytes # (Auto) 1.3 Thou/mm3 (0.0-0.8); Monocytes % (Auto) 16 % (0-12); Neutrophils # (Auto) 4.8 Thou/mm3 (1.8-7.7); Neutrophils % (Auto) 61 % (37-80); Nucleated Red Blood Cell # 0.00 Thou/mm3 (0.00-0.00); Nucleated Red Blood Cell % 0 /100 WBC (0); Platelet Count 180 Thou/mm3 (140-440); RDW Standard Deviation 45.1 fL (35.1-43.9); Red Blood Count 4.92 Miln/mm3 (4.50-5.90); White Blood Count 7.9 Thou/mm3 (3.8-10.6)
[2024-11-09 05:52] LABS: Anion Gap 9 (7-16); BUN/Creatinine Ratio 23 Ratio (12-20); Blood Urea Nitrogen 14 mg/dL (9-23); Calcium 9.1 mg/dL (8.3-10.6); Carbon Dioxide 27.2 mMol/L (20.0-31.0); Chloride 101 mMol/L (98-107); Creatinine (Component) 0.6 mg/dL (0.6-1.3); Estimated Creatinine Clearance 131.8 mL/min (>60); Glucose 123 mg/dL (74-106); Osmolality,Calculated 275 (275-295); Potassium 4.0 mMol/L (3.4-5.1); Sodium 137 mMol/L (136-145); eGFR > 60 See Note
[2024-11-09] MEDS: DOCUSATE SOD 100 MG CAPSULE PO ×2 (09:18→20:04)
[2024-11-09] MEDS: METHADONE HCL 10 MG TABLET 60 MG PO (09:18)
[2024-11-09] MEDS: NICOTINE PATCH 7 MG/24 HR PATCH.TD24 TOP (09:19)
--- NOTE | 2024-11-09 10:27 | PD.SURPROG ---
Documentation for date of: 11/09/24 Subjective Subjective Narrative: Patient is seen and examined. His pain is improving. He is tolerating diet without nausea or vomiting and having bowel movement Exam Vital Signs Temp Pulse Resp BP Pulse Ox O2 Del Method O2 Flow Rate 98.1 F 75 18 113/72 95 Nasal Cannula 2 11/09/24 07:50 11/09/24 07:50 11/09/24 07:50 11/09/24 07:50 11/09/24 07:50 11/09/24 07:50 11/09/24 07:50 Constitutional Constitutional: no acute distress Routine Abdominal Exam Comments: Abdomen is soft and nondistended. Incision is clean, dry and intact Assessment & Plan Assessment Additional comments: Postop day #5 status post exploratory laparotomy with lysis of adhesions and partial small bowel resection Plan May discharge home. PROCEDURES: Procedures Exploratory laparotomy, lysis of adhesions, partial small bowel resection
--- NOTE | 2024-11-09 12:16 | ESPR_ITS ---
<Statement entered by Emily Ortega MD - 11/09/24 15:50> Patient was seen and examined at bedside. No acute overnight events. Tolerated diet well, pain is managed with methadone only. However patient still complaining of mild pain, and yesterday refused working with physical therapy due to pain. Patient had 1 bowel movement. Ambulate patient Continue working with PT Advance diet as tolerates Monitor bowel movement Family is agreeable to home with a home health Plans to discharge tomorrow if patient remains stable. I personally saw and examined the patient and discussed the assessment and plan with the entire medicine team, including my attending , Emily Ortega M.D. PGY-3 Disclaimer: Despite multiple revisions, due to the dictation software being used, the document bellow may not be free of grammatical errors including phonetic/typographic errors. However, this does not deter from our commitment to providing health care in the patient's best interest in mind. Documentation for date of: 11/09/24 Subjective Subjective Interval history: Patient seen at bedside. No acute overnight events. Patient had a bowel movement yesterday. Patient passing gas and feels like will be having further bowel movements today. Working with physiotherapy. Mentioned felt off a little yesterday and did not feel hungry yesterday, however has been eating well today. No worsening abdominal pain, no complaints of chest pain, shortness of breath, nausea/vomiting. Exam Vital Signs Temp Pulse Resp BP Pulse Ox O2 Del Method O2 Flow Rate 98.4 F 82 19 115/69 92 L Room Air 2 11/09/24 12:00 11/09/24 12:00 11/09/24 12:00 11/09/24 12:00 11/09/24 12:00 11/09/24 12:00 11/09/24 07:50 Narrative Exam General: Awake and in no acute distress. Conversational and non-toxic appearing. HEENT: Normocephalic, atraumatic, mucous membranes moist. Heart: Regular rate and rhythm, normal S1 and S2, no murmurs. Lungs: Clear to auscultation with no wheezing or crackles. Abdomen: Soft, nondistended, incision with dressings clean, dry and intact. Decreased bowel sounds. No guarding or rebound tenderness. Neurologic: Alert and oriented x3, no gross neurological deficit, and patient able to move all 4 extremities. Extremities: Chronic wounds on lower bilateral extremities. Dressings clean and intact. Skin: No rash or ecchymoses. Objective Labs 11/09/24 04:50 11/09/24 04:50 Labs: Laboratory Results - last 24 hr 11/09/24 04:50 WBC 7.9 RBC 4.92 Hgb 14.8 Hct 43.8 MCV 89 MCH 30.1 MCHC 33.8 RDW Std Deviation 45.1 H Plt Count 180 Neut % (Auto) 61 Lymph % (Auto) 19 [place] % (Auto) 16 H Eos % (Auto) 3 Baso % (Auto) 1 Neut # (Auto) 4.8 Lymph # (Auto) 1.5 [place] # (Auto) 1.3 H Eos # (Auto) 0.3 Baso # (Auto) 0.1 Immature Gran # (Auto) 0.06 H Absolute Nucleated RBC 0.00 Immature Gran % 1 H Nucleated RBC % 0 Sodium 137 Potassium 4.0 D Chloride 101 Carbon Dioxide 27.2 Anion Gap 9 BUN 14 Creatinine 0.6 Estim Creat Clear Calc 131.8 eGFR > 60 BUN/Creatinine Ratio 23 H Glucose 123 H Calculated Osmolality 275 Calcium 9.1 Quality Measures Quality Measures none Assessment & Plan Assessment Current Active Medications: Generic Name Dose Route Start Last Admin Trade Name Nemesioq PRN Reason Stop Dose Admin Docusate Sodium 100 mg 11/07/24 10:45 11/09/24 09:18 Docusate Sod 100 Mg Capsule PO 12/07/24 10:44 100 mg BID CLAUDY Administration Protocol Cefoxitin Sodium 2 gm/ Sodium 50 mls @ 100 mls/hr 11/05/24 06:00 11/09/24 11:44 Chloride IV 11/12/24 05:59 100 mls/hr Q6HR CLAUDY Administration Methadone HCl 60 mg 11/07/24 10:45 11/09/24 09:18 Methadone Hcl 10 Mg Tablet PO 12/07/24 10:44 60 mg QDAY CLAUDY Administration Nicotine 7 mg 11/05/24 09:00 11/09/24 09:19 Nicotine Patch 7 Mg/24 Hr Patch.Td24 TOP 12/05/24 08:59 7 mg QDAY CLAUDY Administration Ondansetron HCl 4 mg 11/04/24 23:08 Ondansetron Inj 2 Mg/Ml Inj 2 Ml IVP 12/04/24 23:07 Q6HR PRN NAUSEA OR VOMITING Protocol Plan 64 year old male with PHx of alcohol/tobacco/polysubstance abuse, on chronic methadone, HTN, PAD with chronic ulcers on bilateral lower extremity, COPD on 5 L oxygen at home, untreated hepatitis C who presents on 11/04 for severe lower abdominal pain and constipation. Admitted for SBO secondary to incarcerated umbilical hernia. #SBO 2/2 to incarcerated umbilical hernia Postop day #5 Status post exploratory laparotomy, lysis of adhesions, partial small bowel resection with anastomosis Last bowel movement yesterday Plan: ? On methadone 60 mg p.o. daily ? Advanced to dysphagia 3 diet ? If continuing to advance on diet ? Continue cefoxitin until discharge tomorrow #Hx of previous untreated Hep C Patient never underwent treatment Plan - No inpatient intervention - F/U outpatient #Hx of Elevated Right Ventricular Systolic Pressure Last ECHO 02/27/24 showed stage 1 dystolic function. Est EF 60-65%. Est RVSP 66mmg Suggestive of high pressure of pulm artery Plan - F/U w/ cardio outpatient - Caution w/ fluids #Chronic wounds on bilateral lower extremities Chronic wounds due to untreated PAD. Follows up with wound care specalist weekly and takes care of wounds daily at home. Plan - Wound care consulted #Old fracture of R clavicle Plan - No intervention at this time, monitor #Hx polysubstance use #Hx tobacco use #Hx alcohol use Last drink was months ago. Plan - Nicotine patch daily - Methadone 60 mg daily - Dilaudid as above #Pumonlary nodules #Fat containing inguinal hernias #Cholelithiasis #13 mm posterior right lobe liver cyst #Osteopenia with disc narrowing L5-S1 Incidental findings on CT A/P. Plan - CTM - Will likely need outpatient follow up Health Maintenance Disposition: med surg DVT prophylaxis: SCD GI prophylaxis: Protonix Diet: soft, advance as per surgery CODE STATUS: Limited, no intubation Case discussed with my attending Dr. Lindsey, and senior resident, Dr. Jordan Ren MD PGY-1 Attending Provider Attestation/Addendum I attest that I was physically present for the evaluation, physical examination, lab and imaging review of the patient with the residents. I discussed the case with the residents and agree with the findings and plans of care as documented above. Patient seen and examined at bedside this morning. Appears comfortable and denies any new complaints. His abdominal pain has significantly improved. Has been tolerating diet well. Awaiting physical therapy recommendations. Delma Lindsey MD
--- NOTE | 2024-11-09 14:27 | PC.SS ---
SS follow up note; During rounding 'pravin mentioned patient discharging to SNF. SS met with patient at bedside to discuss discharge plan. Patient reports he does not want to wait for auth, therefore would like to discharge home with HH. SS made Dr. Ortega aware to input HH orders.
[2024-11-10] VITALS: BP 105/63; PULSE 83; RESP 18; TEMP 37.2; O2SAT 93
[2024-11-10 04:00] VITALS: BP 108/70; PULSE 86; RESP 18; TEMP 36.7; O2SAT 95
[2024-11-10] MEDS: CEFOXITIN 2 GM in SODIUM CHLORIDE 0.9% (Popper) 50 ML IV (05:04)
[2024-11-10 05:36] LABS: Basophils # (Auto) 0.1 Thou/mm3 (0.0-0.2); Basophils % (Auto) 1 % (0-2.5); Eosinophils # (Auto) 0.3 Thou/mm3 (0.0-0.5); Eosinophils % (Auto) 4 % (0-10); Hematocrit 40.2 % (41.0-53.0); Hemoglobin 14.1 g/dL (13.5-16.0); Immature Granulocytes Auto 0.04 Thou/mm3 (0.00-0.00); Lymphocytes # (Auto) 1.8 Thou/mm3 (1.0-4.8); Lymphocytes % (Auto) 23 % (10-50); Mean Corpuscular HGB Conc 35.1 g/dl (31.0-37.0); Mean Corpuscular Hemoglobin 31.1 pg (25.0-35.0); Mean Corpuscular Volume 89 fL (80-100); Monocytes # (Auto) 1.4 Thou/mm3 (0.0-0.8); Monocytes % (Auto) 17 % (0-12); Neutrophils # (Auto) 4.3 Thou/mm3 (1.8-7.7); Neutrophils % (Auto) 55 % (37-80); Nucleated Red Blood Cell # 0.00 Thou/mm3 (0.00-0.00); Nucleated Red Blood Cell % 0 /100 WBC (0); Platelet Count 151 Thou/mm3 (140-440); RDW Standard Deviation 45.1 fL (35.1-43.9); Red Blood Count 4.54 Miln/mm3 (4.50-5.90); White Blood Count 7.9 Thou/mm3 (3.8-10.6)
[2024-11-10 06:03] LABS: Anion Gap 8 (7-16); BUN/Creatinine Ratio 15 Ratio (12-20); Blood Urea Nitrogen 9 mg/dL (9-23); Calcium 8.4 mg/dL (8.3-10.6); Carbon Dioxide 27.1 mMol/L (20.0-31.0); Chloride 101 mMol/L (98-107); Creatinine (Component) 0.6 mg/dL (0.6-1.3); Estimated Creatinine Clearance 131.8 mL/min (>60); Glucose 102 mg/dL (74-106); Osmolality,Calculated 270 (275-295); Potassium 3.9 mMol/L (3.4-5.1); Sodium 136 mMol/L (136-145); eGFR > 60 See Note
[2024-11-10 06:55] VITALS: BP 106/64; PULSE 74; RESP 13; TEMP 36.6; O2SAT 97
[2024-11-10] MEDS: DOCUSATE SOD 100 MG CAPSULE PO (08:35)
[2024-11-10] MEDS: NICOTINE PATCH 7 MG/24 HR PATCH.TD24 TOP (08:35)
[2024-11-10] MEDS: METHADONE HCL 10 MG TABLET 60 MG PO (08:35)
--- NOTE | 2024-11-10 09:20 | PC.SS ---
Follow up note: Pt will return home with [facility].
--- NOTE | 2024-11-10 11:53 | PD.RESDS ---
Planned Discharge Date 11/10/24 DS: Providers Provider Date of admission: 11/04/24 17:30 Primary care physician: Kerwin Manuel MD Admitting Provider: Bert Arias DO Attending Provider on Admission: Delma Lindsey MD Consults: 11/04/24 16:27 Consult to General Surgery Stat Comment: Consulting Provider: Carson Goldman 11/05/24 06:00 Referral Wound Care Routine Comment: 11/05/24 15:26 Referral Nutritional Services Routine Comment: Wounds 11/06/24 11:12 Referral Physical Therapy Routine Comment: Physician Instructions: Attending Provider on DC: Delma Lindsey MD Discharging Provider: Delma Lindsey MD DS: Diagnosis Problem List Completed Was Problem List Reviewed/Reconciled?: Yes Hospital Course Hospital Course Hospital course: 64 year old male with past medical history of alcohol/tobacco/polysubstance abuse, on chronic methadone, hypertension, PAD with chronic ulcers on bilateral lower extremity, COPD on 5 L oxygen at home, untreated hepatitis C who presented on 11/04 for severe lower abdominal pain and constipation. Patient was admitted for SBO secondary to incarcerated umbilical hernia that required surgical fixation. ED course: Presented with initial vital signs of BP 164/112, remaining afebrile and well-saturated on room air. Lab work was largely unremarkable, with a normal WBC and Hgb 16.9, though notable findings included a slightly low Na (134) and an elevated alk phos (226); AST, ALT, and lipase were within normal limits. A CT abdomen/pelvis revealed a SBO secondary to an umbilical hernia, along with several incidental findings including two small pulmonary nodules, an irregular liver contour with a right lobe cyst, cholelithiasis, and fat-containing inguinal hernias. Patient received [place] for pain management and a NS bolus before being admitted to the hospital for management of the SBO. Hospital course: Patient underwent an exploratory laparotomy with lysis of adhesions and partial small bowel resection with primary anastomosis to correct the obstruction. Post-operatively, the patient was closely monitored and had an uncomplicated recovery with expected healing progression. Patient tolerated diet well and had return of normal bowel function. Pain management began with a CHANGE ROOM ATTENDANT pump, which was successfully transitioned to a home pain regimen of methadone 60 mg daily. At the time of discharge, the patient was progressing back to baseline and was discharged home with Home Health services for continued support and recovery. Discharge instructions: - Please follow-up with Dr. Goldman (general surgery) within 2 weeks after discharge - Follow-up with your PCP within 1 week of discharge or follow-up at the [facility] [address] [place] [address] - Please ask your PCP to follow-up on pulmonary nodules seen incidentally on CT imaging - you will need re-imaging studies - If your symptoms worsen or if you develop new chest pain, shortness of breath, severe abdominal pain or new bleeding - please come back to the ED immediately. Wound care - please follow up at [facility] as scheduled. - Full thickness arterial ulcer to left plantar 2nd toe and dorsal foot including great through 4th toes: cleanse with NS, pat dry, cover open wounds with hydrofera blue ready foam than apply 2 layer compression wraps. change q3-5d/PRN for falling off, pain not resolved by elevation. -Please see wound RN for supplies. Admission diagnoses: #SBO 2/2 to incarcerated umbilical hernia #Hx of COPD #Hx of previous untreated Hep C #Hx of Elevated Right Ventricular Systolic Pressure #Chronic wounds on bilateral lower extremities #Hx of old fracture of R clavicle #Hx polysubstance use #Hx tobacco use #Hx alcohol use Case discussed with my attending Dr. Rosalia Ren MD PGY-1 Status at Discharge Overall status at discharge: patient is progressing back to baseline Time Spent with Patient Time spent: Greater than 30 minutes Exam Vital Signs Temp Pulse Resp BP Pulse Ox O2 Del Method O2 Flow Rate 97.9 F 74 13 106/64 97 Nasal Cannula 2 11/10/24 06:55 11/10/24 06:55 11/10/24 06:55 11/10/24 06:55 11/10/24 06:55 11/10/24 06:55 11/10/24 06:55 Narrative Exam General: Awake and in no acute distress. Conversational and non-toxic appearing. HEENT: Normocephalic, atraumatic, mucous membranes moist. Heart: Regular rate and rhythm, normal S1 and S2, no murmurs. Lungs: Clear to auscultation with no wheezing or crackles. Abdomen: Soft, nondistended, incision with dressings clean, dry and intact. BS present x4. No guarding or rebound tenderness. Neurologic: Alert and oriented x3, no gross neurological deficit, and patient able to move all 4 extremities. Extremities: Chronic wounds on lower bilateral extremities. Dressings clean and intact. Skin: No rash or ecchymoses. Discharge Plan Plan Patient Disposition: Home w/HOME HEALTH Patient condition on transfer: Stable Care Plan Goals: Please follow-up with Dr. Goldman (general surgery) within 2 weeks after discharge Follow-up with your PCP within 1 week of discharge or follow-up at the [facility] [address] [place] [address] Please ask your PCP to follow-up on pulmonary nodules seen incidentally on CT imaging - you will need re-imaging studies If your symptoms worsen or if you develop new chest pain, shortness of breath, severe abdominal pain or new bleeding - please come back to the ED immediately. Wound care - please follow up at [facility] as scheduled. Full thickness arterial ulcer to left plantar 2nd toe and dorsal foot including great through 4th toes: cleanse with NS, pat dry, cover open wounds with hydrofera blue ready foam than apply 2 layer compression wraps. change q3-5d/PRN for falling off, pain not resolved by elevation. Prescriptions/Referrals Prescriptions/Med Rec: New docusate sodium 100 mg Capsule 100 mg PO BID Qty: 60 0RF ascorbic acid (vitamin C) [Vitamin C] 500 mg tablet 500 mg PO BID Qty: 60 0RF zinc sulfate 50 mg zinc (220 mg) capsule 50 mg PO QDAY Qty: 30 0RF Continued methadone 10 mg/5 mL Solution 60 mg PO QDAY Discontinued fluticasone propion-salmeterol 250-50 mcg/dose blister with device 1 inh INHALATION QDAY clopidogrel 75 mg tablet 75 mg PO DAILY Rx Instructions: pt hasn''t been taking for more than a week. aspirin 81 mg tablet,delayed release (DR/EC) 81 mg PO DAILY Patient Comments: TAKE 1 TABLET BY MOUTH EVERY DAY Rx Instructions: pt hasn't been taking meds for more than a week per . buspirone 5 mg tablet 5 mg PO BID Patient Comments: TAKE 1 TABLET BY MOUTH TWICE A DAY FOR 90 DAYS buspirone 5 mg tablet 5 mg PO BID Patient Comments: TAKE 1 TABLET BY MOUTH TWICE A DAY FOR 90 DAYS thiamine HCl (vitamin B1) 100 mg tablet 100 mg PO QDAY Patient Comments: TAKE 1 TABLET BY MOUTH EVERY DAY pantoprazole 40 mg tablet,delayed release (DR/EC) 40 mg PO QDAY Patient Comments: TAKE 1 TABLET BY MOUTH EVERY DAY acamprosate 333 mg tablet,delayed release (DR/EC) 333 mg PO QDAY Patient Comments: PLEASE SEE ATTACHED FOR DETAILED DIRECTIONS magnesium hydroxide [Milk of Magnesia] 400 mg/5 mL Suspension 30 ml PO QDAY PRN (Reason: Constipation) Qty: 355 0RF atorvastatin 80 mg tablet 80 mg PO HS Patient Comments: TAKE 1 TABLET BY MOUTH EVERY DAY AT BEDTIME furosemide 20 mg tablet 20 mg PO QDAY Patient Comments: TAKE 1 TABLET BY MOUTH EVERY DAY FOR EDEMA loratadine 10 mg tablet 10 mg PO QDAY Patient Comments: TAKE 1 TABLET BY MOUTH EVERY DAY FOR ALLERGIES cephalexin 500 mg capsule 500 mg PO 4XD Patient Comments: TAKE 1 CAPSULE BY MOUTH 4 TIMES A DAY potassium chloride 10 mEq tablet extended release 10 meq PO DAILY Patient Comments: TAKE 1 TABLET BY MOUTH DAILY WITH FOOD aspirin 81 mg tablet,delayed release (DR/EC) 81 mg PO DAILY Patient Comments: TAKE 1 TABLET BY MOUTH EVERY DAY clopidogrel 75 mg tablet 75 mg PO DAILY Patient Comments: TAKE 1 TABLET BY MOUTH EVERY DAY buspirone 5 mg tablet 5 mg PO BID Patient Comments: TAKE 1 TABLET BY MOUTH TWICE A DAY FOR 90 DAYS furosemide 20 mg tablet 20 mg PO DAILY Patient Comments: TAKE 1 TABLET BY MOUTH EVERY DAY atorvastatin 80 mg tablet 80 mg PO .pm Patient Comments: TAKE 1 TABLET BY MOUTH NIGHTLY AT BEDTIME fluticasone propion-salmeterol [Advair Diskus] 250-50 mcg/dose blister with device 1 inh inhalation Q12H fluticasone propionate [24 Hour Allergy Relief] 50 mcg/actuation spray,suspension 1 spray intranasal BID Rx Instructions: administer into each nostril Referrals: Kerwin Manuel MD [Primary Care Provider, Family Practice] Carson Goldman MD [Physician, General Surgery] Patient/Caregiver Discharge Instructions Discharge Activity: activity as tolerated Other Discharge Activity Instructions:: Please follow-up with Dr. Goldman (general surgery) within 2 weeks after discharge Follow-up with your PCP within 1 week of discharge or follow-up at the [facility] [address] [place] [address] Please ask your PCP to follow-up on pulmonary nodules seen incidentally on CT imaging - you will need re-imaging studies If your symptoms worsen or if you develop new chest pain, shortness of breath, severe abdominal pain or new bleeding - please come back to the ED immediately. Wound care - please follow up at [facility] as scheduled. Full thickness arterial ulcer to left plantar 2nd toe and dorsal foot including great through 4th toes: cleanse with NS, pat dry, cover open wounds with hydrofera blue ready foam than apply 2 layer compression wraps. change q3-5d/PRN for falling off, pain not resolved by elevation. Please see wound RN for supplies. Education Materials: Small Bowel Obstruction, How the Colon Works Print Language: Uzbek Activity Restrictions/Additional Instructions: May shower in 24 hours. Wear abdominal binder at all times. Avoid lifting, straining, pulling or pushing for 8 weeks. May take over the counter laxatives if no bowel movement in 2 days. Follow up with Dr. Goldman in 2 weeks, call [phone] for an appointment. Stand Alone Forms: [facility] Award Info., Patient Portal Info Letter Discharge Order Discharge Orders: Discharge (Routine); Ordered 11/10/24 Ordered By: Earnest Perez Quality Discharge Quality Measures VTE prophylaxis Attestestation Attestation I attest that I was physically present for the evaluation, physical examination, lab and imaging review of the patient with the residents. I discussed the case with the residents and agree with the findings and plans of care as documented above. Delma Lindsey MD
[2024-11-10 12:00] VITALS: BP 120/77; PULSE 78; RESP 18; TEMP 37; O2SAT 96
--- NOTE | 2024-11-10 12:10 | PC.SS ---
SS met with pt and spoke to by phone regarding patient's d/c plan. SS provided verbal choices for d/c to home with HH or SNF. Pt refused SNF and is adamant about not going to a SNF. is aware and is agreeable for pt to return home upon discharge with HH (Bedside nurse, Candace was present during the discussion). is aware to bring patient's small O2 tank upon dc. SS provided verbal choices for HH agencies. Pt is requesting to continue [facility] and only for PT. Per Wound Care NurseSelene wound clinic referral does not require to be submitted due to pt already being established at [facility]. Pt is requesting a male HH nurse. Transfer nurseNydia is aware.
--- NOTE | 2024-11-10 12:32 | PC.SS ---
SS spoke to physician team and they state pt is alert/oriented. Per bedside nurse, Mandish pt is alert/oriented.
--- NOTE | 2024-11-10 14:28 | PC.CC ---
Addendum entered by Miriam Fitzgerald RN 11/11/24 11:13: I faxed discharge summary to [facility] today. Addendum entered by Marianne Rivera RN 11/10/24 16:35: will need to send final DC summary when avail. Addendum entered by Marianne Rivera RN 11/10/24 16:34: [facility] accepted and booked, soc 11/12/24. Addendum entered by Marianne Rivera RN 11/10/24 14:44: [facility] declined. HH ref sent to other agencies, waiting for response. Original Note: hh ref sent to [facility], waiting for a response. Per ÁNGELA Hollingsworth, pt and his prefers a male nurse for HH. Will need to send signed DC Summary when avail.
== END 2024-11-10 14:52 | disposition home health service (06) | DRG 330 ==
LOC: SERX 16:39 → SERHOLD 17:35 → S3NX 22:33
PROVIDERS: Nurse Practitioner Family; Registered Nurse General Practice; Student in an Organized Health Care Education/Training Program; Surgery; Admitting Provider Student in an Organized Health Care Education/Training Program; Emergency Provider Family Medicine; PCP Family Medicine; Visit Provider Student in an Organized Health Care Education/Training Program
PROC: (CPT 49000; principal; 2024-11-04 20:00)
DX: K42.0 Umbilical hernia with obstruction, without gangrene (principal); F11.20 Opioid dependence, uncomplicated; K56.52 Intestinal adhesions [bands] with complete obstruction; I10 Essential (primary) hypertension; J44.9 Chronic obstructive pulmonary disease, unspecified; R91.1 Solitary pulmonary nodule; F17.210 Nicotine dependence, cigarettes, uncomplicated; K76.89 Other specified diseases of liver; M85.80 Other specified disorders of bone density and structure, unspecified site; K80.20 Calculus of gallbladder without cholecystitis without obstruction; I73.9 Peripheral vascular disease, unspecified; Z79.02 Long term (current) use of antithrombotics/antiplatelets; Z79.82 Long term (current) use of aspirin; Z86.73 Personal history of transient ischemic attack (TIA), and cerebral infarction without residual deficits; Z79.899 Other long term (current) drug therapy
CPT/HCPCS: 36415; 74176; 80048; 80053; 80061; 80307; 81001; 83036; 83690; 83735; 84443; 85025; 85610; 85730; 87077; 87086; 87186; 96365; 97162; 99284; A4314; A4649; J0131; J0694; J1100; J1171; J2270; J2371; J2543; J2704; J2710; J3010; J3480; J3490; J7030; J7050; J7120; P9047; A9270; J1596; J1805; P0947

== ENCOUNTER → 2024-11-17 | Outpatient (CLI) | payer OTHER, SELFPAY | END | disposition home or self-care (01) | LOC: SWHD 12:51 | PROVIDERS: PCP Internal Medicine; Referring Provider Internal Medicine; Visit Provider Surgery | DX: L97.522 Non-pressure chronic ulcer of other part of left foot with fat layer exposed (principal); J44.9 Chronic obstructive pulmonary disease, unspecified; I73.9 Peripheral vascular disease, unspecified; I63.9 Cerebral infarction, unspecified; F15.90 Other stimulant use, unspecified, uncomplicated | CPT/HCPCS: 29581; 99213; A9270; G0463 ==

== ENCOUNTER → 2024-11-24 | Outpatient (CLI) | payer OTHER, SELFPAY | END | disposition home or self-care (01) | LOC: SWHD 14:03 | PROVIDERS: PCP Internal Medicine; Referring Provider Internal Medicine; Visit Provider Student in an Organized Health Care Education/Training Program | DX: L97.422 Non-pressure chronic ulcer of left heel and midfoot with fat layer exposed (principal); J44.9 Chronic obstructive pulmonary disease, unspecified; I73.9 Peripheral vascular disease, unspecified; I63.9 Cerebral infarction, unspecified; F15.90 Other stimulant use, unspecified, uncomplicated | CPT/HCPCS: 11042; A9270 ==

== ENCOUNTER → 2024-12-01 | Outpatient (CLI) | payer OTHER, SELFPAY | END | disposition home or self-care (01) | LOC: SWHD 14:19 | PROVIDERS: PCP Internal Medicine; Referring Provider Internal Medicine; Visit Provider Student in an Organized Health Care Education/Training Program | DX: L97.522 Non-pressure chronic ulcer of other part of left foot with fat layer exposed (principal); J44.9 Chronic obstructive pulmonary disease, unspecified; I73.9 Peripheral vascular disease, unspecified; I63.9 Cerebral infarction, unspecified; F15.90 Other stimulant use, unspecified, uncomplicated | CPT/HCPCS: 11042; A9270 ==

== ENCOUNTER → 2024-12-08 | Outpatient (CLI) | payer OTHER, SELFPAY | END | disposition home or self-care (01) | LOC: SWHD 13:23 | PROVIDERS: PCP Internal Medicine; Referring Provider Internal Medicine; Visit Provider Student in an Organized Health Care Education/Training Program | DX: L97.522 Non-pressure chronic ulcer of other part of left foot with fat layer exposed (principal); J44.9 Chronic obstructive pulmonary disease, unspecified; I73.9 Peripheral vascular disease, unspecified; I63.9 Cerebral infarction, unspecified; F15.90 Other stimulant use, unspecified, uncomplicated | CPT/HCPCS: 11042; A9270 ==

== ENCOUNTER → 2024-12-15 | Outpatient (CLI) | payer OTHER, SELFPAY | END | disposition home or self-care (01) | LOC: SWHD 14:30 | PROVIDERS: PCP Internal Medicine; Referring Provider Internal Medicine; Visit Provider Student in an Organized Health Care Education/Training Program | DX: L97.522 Non-pressure chronic ulcer of other part of left foot with fat layer exposed (principal); J44.9 Chronic obstructive pulmonary disease, unspecified; I73.9 Peripheral vascular disease, unspecified; I63.9 Cerebral infarction, unspecified; F15.90 Other stimulant use, unspecified, uncomplicated | CPT/HCPCS: 11042; A9270 ==

== ENCOUNTER → 2025-01-12 | Outpatient (CLI) | payer OTHER, SELFPAY | END | disposition home or self-care (01) | LOC: SWHD 14:25 | PROVIDERS: PCP Internal Medicine; Referring Provider Internal Medicine; Visit Provider Surgery | DX: L97.522 Non-pressure chronic ulcer of other part of left foot with fat layer exposed (principal); S81.802A Unspecified open wound, left lower leg, initial encounter; S81.801A Unspecified open wound, right lower leg, initial encounter; X58.XXXA Exposure to other specified factors, initial encounter; J44.9 Chronic obstructive pulmonary disease, unspecified; I73.9 Peripheral vascular disease, unspecified; I63.9 Cerebral infarction, unspecified; F15.90 Other stimulant use, unspecified, uncomplicated | CPT/HCPCS: 29580; A9270 ==